=== PATIENT | female | born 1955 | race Caucasian/White ===

== ENCOUNTER 2019-04-15 14:42 | Inpatient (IN) | payer OTHER ==
[~2019-04-15] VITALS: Ht 152.4 cm; Wt 68.7 kg
[2019-04-15] MEDS ORDERED: ATORVASTATIN CA20 MG ORAL (15:08)
[2019-04-15] MEDS ORDERED: FLUOXETINE HCL10 MG ORAL (15:08)
[2019-04-15] MEDS ORDERED: LISINOPRIL5 MG ORAL (15:08)
[2019-04-15] MEDS ORDERED: FAMOTIDINE20 MG ORAL (15:08)
[2019-04-15] MEDS ORDERED: HYDROXYZINE HCL25 M1 PO (15:08)
[2019-04-15] MEDS ORDERED: GLIPIZIDE5 MG ORAL (15:08)
[2019-04-15] MEDS ORDERED: TRAZODONE HCL50 MG ORAL (15:08)
[2019-04-15] MEDS ORDERED: QUETIAPINE FUMA50 MG ORAL (15:08)
[2019-04-15] MEDS ORDERED: DEPAKOTE250 MG PO (15:08)
[2019-04-15] MEDS ORDERED: DEPAKOTE ER500 MG ORAL (15:08)
--- NOTE | 2019-04-15 15:15 | NUR ---
ED Nurse Note: Patient brought in by cyanide case hardener, Jeramy due to generalized weakness x 2 weeks, not able to 'walk around as usual, take care of herself' at [facility]. Patient awake, alert, oriented x2 (name, place) and able to follow some commands; Patient was able to walk with assistance and use restroom. Report no pain. No facial grimacing or guarding noted. Placed patient on cleaning attendant. No ectopy noted. Bed in lowest position. Patient has hospital socks on.
--- NOTE | 2019-04-15 15:17 | Emergency Room Report ---
History of Present Illness General Chief Complaint: Generalized Weakness Source: Patient, Medical Record Present Illness HPI Patient presents by boarding care member who reports the patient has been progressively getting more weak unable to ambulate having difficulty standing The facility is unable to care for the patient in their capacity patient also has had several falls in the recent past Denies any chest pain or shortness of breath denies any vomiting she has had decreased oral intake Denies any recent change in medications Denies any loss of control of bowel or urination denies any sensation changes in the genital area Allergies: Coded Allergies: No Known Allergies (Unverified , 04/15/19) Patient History Past Medical History: see triage record Pertinent Family History: none Last Menstrual Period: na Reviewed Nursing Documentation: PMH: Agreed; PSxH: Agreed Nursing Documentation-PMH Past Medical History: No History, Except For Hx Hypertension: Yes Hx Diabetes: Yes Hx Gastrointestinal Problems: Yes - GERD History Of Psychiatric Problem: Yes - depression Hx Neurological Problems: Yes - craniotomy Review of Systems All Other Systems: negative except mentioned in HPI Physical Exam Vital Signs Date Time Temp Pulse Resp B/P (MAP) Pulse Ox O2 Delivery O2 Flow Rate FiO2 04/15/19 14:47 98.1 80 20 100/71 (81) 97 Room Air Sp02 EP Interpretation: reviewed, normal General Appearance: no apparent distress Head: normocephalic, atraumatic Eyes: bilateral eye PERRL, bilateral eye EOMI ENT: normal voice, dry mucus membranes Neck: supple, thyroid normal Respiratory: lungs clear, no retraction, no accessory muscle use Cardiovascular #1: regular rate, rhythm Gastrointestinal: non tender, soft Musculoskeletal: other - Patient has equal flexion extension of both feet no obvious focal weakness trying to stand the patient is able to ambulate few steps however reports feeling, weak and needing to sit down Neurologic: alert, oriented x3 Psychiatric: normal inspection Skin: no rash, palpation normal Lymphatic: no adenopathy Medical Decision Making Diagnostic Impression: Primary Impression: Hyponatremia Additional Impression: Weakness ER Course Patient is a fairly complex patient with multiple differential to consideration including but not limited to cardiac cardiopulmonary and vascular emergencies Central process also considered CT does not show any obvious acute pathology patient's sodium level is low Further hydrated with sodium chloride And at this time requires further inpatient care Labs Test 04/15/19 15:15 White Blood Count 8.9 K/UL (4.8-10.8) Red Blood Count 4.42 M/UL (4.20-5.40) Hemoglobin 13.0 G/DL (12.0-16.0) Hematocrit 39.1 % (37.0-47.0) Mean Corpuscular Volume 88 FL (80-99) Mean Corpuscular Hemoglobin 29.5 PG (27.0-31.0) Mean Corpuscular Hemoglobin Concent 33.3 G/DL (32.0-36.0) Red Cell Distribution Width 14.9 % (11.6-14.8) Platelet Count 166 K/UL (150-450) Mean Platelet Volume 6.1 FL (6.5-10.1) Neutrophils (%) (Auto) 50.7 % (45.0-75.0) Lymphocytes (%) (Auto) 35.7 % (20.0-45.0) Monocytes (%) (Auto) 8.8 % (1.0-10.0) Eosinophils (%) (Auto) 3.5 % (0.0-3.0) Basophils (%) (Auto) 1.3 % (0.0-2.0) Urine Color Pale yellow Urine Appearance Clear Urine pH 7 (4.5-8.0) Urine Specific Palmer 1.010 (1.005-1.035) Urine Protein Negative (NEGATIVE) Urine Glucose (UA) Negative (NEGATIVE) Urine Ketones Negative (NEGATIVE) Urine Blood Negative (NEGATIVE) Urine Nitrite Negative (NEGATIVE) Urine Bilirubin Negative (NEGATIVE) Urine Urobilinogen Normal MG/DL (0.0-1.0) Urine Leukocyte Esterase Negative (NEGATIVE) Sodium Level 124 MMOL/L (136-145) Potassium Level 4.7 MMOL/L (3.5-5.1) Chloride Level 93 MMOL/L (98-107) Carbon Dioxide Level 25 MMOL/L (21-32) Anion Gap 6 mmol/L (5-15) Blood Urea Nitrogen 19 mg/dL (7-18) Creatinine 1.3 MG/DL (0.55-1.30) Estimat Glomerular Filtration Rate 41.4 mL/min (>60) Glucose Level 127 MG/DL (74-106) Calcium Level 9.0 MG/DL (8.5-10.1) Total Bilirubin 0.3 MG/DL (0.2-1.0) Aspartate Amino Transf (AST/SGOT) 17 U/L (15-37) Alanine Aminotransferase (ALT/SGPT) 11 U/L (12-78) Alkaline Phosphatase 55 U/L (46-116) Total Creatine Kinase 26 U/L (26-308) Creatine Kinase MB < 0.5 NG/ML (0.0-3.6) Creatine Kinase MB Relative Index 1.9 Troponin I 0.000 ng/mL (0.000-0.056) Pro-B-Type Natriuretic Peptide 511 pg/mL (0-125) Total Protein 6.4 G/DL (6.4-8.2) Albumin 2.7 G/DL (3.4-5.0) Globulin 3.7 g/dL Albumin/Globulin Ratio 0.7 (1.0-2.7) EKG Diagnostic Results Rate: normal Rhythm: NSR ST Segments: no acute changes Rhythm Strip Diag. Results EP Interpretation: yes Rate: 80 Rhythm: NSR, no PVC's, no ectopy Chest X-Ray Diagnostic Results Chest X-Ray Diagnostic Results : Chest X-Ray Ordered: Yes # of Views/Limited/Complete: 1 View Indication: Chest Pain EP Interpretation: Yes Interpretation: no consolidation, no effusion, no pneumothorax Impression: No acute disease Electronically Signed by: Ruth Francisco DO CT/MRI/US Diagnostic Results CT/MRI/US Diagnostic Results : Impression CT head no acute disease CT L-spine no acute disease Last Vital Signs Date Time Temp Pulse Resp B/P (MAP) Pulse Ox O2 Delivery O2 Flow Rate FiO2 04/15/19 14:47 98.1 80 20 100/71 (81) 97 Room Air Status: improved Disposition: ADMITTED INPATIENT Condition: Serious Ruth Francisco DO Apr 15, 2019 15:17
[2019-04-15 15:20] VITALS: BP 110/68
--- NOTE | 2019-04-15 15:31 | NUR ---
ED Nurse Note: Patient taken down for CT scan. salon/spa manager in waiting room.
[2019-04-15 15:43] LABS: APPEARANCE,URINE CLEAR; BILIRUBIN, URINE NEGATIVE (NEGATIVE); COLOR,URINE PALE YELLOW; GLUCOSE, URINE (UA) NEGATIVE (NEGATIVE); KETONES,URINE NEGATIVE (NEGATIVE); LEUKOCYTE ESTERASE ,URINE NEGATIVE (NEGATIVE); NITRITE,URINE NEGATIVE (NEGATIVE); PH,URINE 7 (4.5-8.0); PROTEIN,URINE NEGATIVE (NEGATIVE); UROBILINOGEN,URINE NORMAL MG/DL (0.0-1.0)
[2019-04-15 15:44] LABS: BASOPHILS % (AUTO) 1.3 % (0.0-2.0); EOSINOPHILS % (AUTO) 3.5 % (0.0-3.0); HEMATOCRIT 39.1 % (37.0-47.0); LYMPHOCYTES % (AUTO) 35.7 % (20.0-45.0); MEAN CORPUSCULAR VOLUME 88 FL (80-99); MONOCYTES % (AUTO) 8.8 % (1.0-10.0); NEUTROPHILS % (AUTO) 50.7 % (45.0-75.0); PLATELET COUNT 166 K/UL (150-450); RED BLOOD COUNT 4.42 M/UL (4.20-5.40); RED CELL DISTRIBUTION WIDTH 14.9 % (11.6-14.8); WHITE BLOOD COUNT 8.9 K/UL (4.8-10.8)
--- NOTE | 2019-04-15 15:49 | Diagnostic Imaging Report ---
Indication: Chest pain Comparison: None A single view chest radiograph was obtained. Findings: No definite infiltrate or pulmonary vascular congestion identified. The heart is normal in size. The aorta is mildly enlarged consistent with atherosclerotic vascular disease. The bones are osteopenic. Cervical hardware noted. Surgical clips in the upper abdomen noted. Impression: No acute disease
[2019-04-15 15:54] LABS: ANION GAP 6 mmol/L (5-15); BLOOD UREA NITROGEN 19 mg/dL (7-18); CARBON DIOXIDE 25 MMOL/L (21-32); CHLORIDE 93 MMOL/L (98-107); CREATININE 1.3 MG/DL (0.55-1.30); POTASSIUM 4.7 MMOL/L (3.5-5.1); SODIUM 124 MMOL/L (136-145)
--- NOTE | 2019-04-15 16:01 | Diagnostic Imaging Report ---
Indication: Head trauma. Headache. Progressive weakness Technique: Contiguous 5 mm thick transaxial imaging of the head obtained in a Siemens Sensation [address] scanner. Soft tissue and bone windows generated. Automatic Exposure Control was utilized. Total Dose length Product (DLP): 1386.[address] Dose Index Volume (CTDIvol): 70.38 mGy Comparison: none Findings: There is a 6 x 5 cm of resected calvarium over the right frontal region. There is mild generalized prominence of the ventricles, basal cisterns, and cerebral sulci consistent with atrophy. Mild, nonspecific, white matter hypoattenuation is noted throughout the brain consistent with chronic small vessel disease. There is no midline shift, edema, acute hemorrhage, mass effect, or abnormal extra-axial fluid collections. Bones are unremarkable. Impression: No acute intracranial bleed, mass effect or edema. 6 x 5 cm right frontal craniectomy. Mild atrophy of the brain. Nonspecific white matter hypoattenuation probably due to chronic small vessel disease. The CT scanner at [facility] is accredited by the [employer] and the scans are performed using dose optimization techniques as appropriate to a performed exam including Automatic Exposure control.
--- NOTE | 2019-04-15 16:04 | Diagnostic Imaging Report ---
Indication: Back pain and trauma Technique: Continuous helical transaxial imaging of the lumbar spine was obtained. No IV contrast was administered. Coronal 2-D reformats were also obtained. Study obtained in a Siemens sensation [address] Total Dose length Product (DLP): 611.[address] Dose Index Volume (CTDIvol): 20.06 mGy Comparison: None Findings: There is no evidence of an acute fracture or malalignment. Height and configuration of the vertebral bodies and intervertebral discs are largely within normal limits. There is minimal endplate osteophytes. The facets are mildly hypertrophic at L4-5 and L5-S1. There is no soft tissue swelling. Mild arterial calcium noted within the aorta and iliac arteries. Impression: No acute injury identified. Minimal degenerative changes as described above. Atherosclerotic vascular disease The CT scanner at [facility] is accredited by the [employer] and the scans are performed using dose optimization techniques as appropriate to a performed exam including Automatic Exposure control.
[2019-04-15 16:16] LABS: ALANINE AMINOTRANSFERASE 11 U/L (12-78); ALBUMIN 2.7 G/DL (3.4-5.0); ALBUMIN/GLOBULIN RATIO 0.7 (1.0-2.7); ALKALINE PHOSPHATASE 55 U/L (46-116); ASPARTATE AMINO TRANSFERASE 17 U/L (15-37); BILIRUBIN,TOTAL 0.3 MG/DL (0.2-1.0); CKMB < 0.5 NG/ML (0.0-3.6); CREATINE KINASE 26 U/L (26-308)
[2019-04-15 18:00] VITALS: BP 120/77
--- NOTE | 2019-04-15 18:31 | NUR ---
ED Nurse Note: Attempted to give report 4E. Will call us back later.
--- NOTE | 2019-04-15 18:41 | NUR ---
ED Nurse Note: Attempted to give report 4E.
--- NOTE | 2019-04-15 18:52 | NUR ---
CASE MANAGEMENT: REVIEW 64Y/F PRESENTED TO ED FROM [facility] CC: DIFFICULTY AMBULATING SI: GENERALIZED WEAKNESS T 98.1 HR 80 RR 20 BP 100/71 SAT 97% ROOM AIR NA 124 CHLOR 93 BUN GLUCOSE 127 IS: NS IVF BOLUS X1 CT HEAD PENDING PATIENT ADMITTED TO MED/SURG UNIT 04/15/2019 DCP: PATIENT IS FROM [facility]
--- NOTE | 2019-04-15 19:10 | NUR ---
ED Nurse Note: Report given to CHA Mayers. Patient is being transferred to in wheelchair with all her belongings. Patient consumed 100% dinner. Tolerated oral intake without problem.
[2019-04-15 20:00] VITALS: BP 154/85
--- NOTE | 2019-04-15 21:00 | NUR ---
NURSE NOTES: Admitted a 64 year old female, alert to name, place and purpose of visit, skin intact. IV access on the right antecubital area g.20. Oriented to room. Instructed the use of call light. Needs attended. Bed in lowest position, lock engaged and alarm on. Called Dr. Schofield for admission orders @2009 and left message. Received a call back from Dr. Schofield at [address] Silveira. Called Dr. Silveira and left message @2049. Waited for call back and attempted to contact Dr. Silveira again @9pm. Attempted to follow up orders @ 2249. Got a response and was waiting for admission orders. Got a response again from Dr. Silveira @ 2307 but no orders in EMR. Dr. Silveira made aware that no orders appeared on emr @ 00:25. Called Dr. Silveira and left message again and still waiting for call back until this time. Charge nurse made aware.
[2019-04-16] VITALS: BP 141/82
[2019-04-16 04:00] VITALS: BP 146/79
--- NOTE | 2019-04-16 06:20 | NUR ---
NURSE NOTES: Called Dr. Silveira and left message.
[2019-04-16] MEDS ORDERED: HydrALAZINE 25mg tab ORAL PRN (07:15)
--- NOTE | 2019-04-16 07:40 | NUR ---
NURSE NOTES: Spoke with Dr. Schofield. Obtained admission orders and carried out.
--- NOTE | 2019-04-16 07:45 | NUR ---
HAND-OFF: Report given to CHA Marino.
--- NOTE | 2019-04-16 07:49 | NUR ---
NURSE NOTES: Patient awake, alert x3; on room air, no sing of distress and shortness of breath; no sing of distress and chest pain; IV Right AC 20G flushes well; side rails up x3, breaks engaged, bed at lowest position, bed alarm on; call light within reach; will keep monitoring.
[2019-04-16 08:00] VITALS: BP 146/80
[2019-04-16 08:09] LABS: BASOPHILS % (AUTO) 1.3 % (0.0-2.0); EOSINOPHILS % (AUTO) 4.4 % (0.0-3.0); HEMOGLOBIN 11.7 G/DL (12.0-16.0); LYMPHOCYTES % (AUTO) 39.6 % (20.0-45.0); MEAN CORPUSCULAR VOLUME 89 FL (80-99); MONOCYTES % (AUTO) 8.5 % (1.0-10.0); NEUTROPHILS % (AUTO) 46.1 % (45.0-75.0); PLATELET COUNT 145 K/UL (150-450); RED BLOOD COUNT 3.93 M/UL (4.20-5.40); WHITE BLOOD COUNT 7.7 K/UL (4.8-10.8)
[2019-04-16 08:24] LABS: ALANINE AMINOTRANSFERASE 11 U/L (12-78); ALBUMIN 2.4 G/DL (3.4-5.0); ALBUMIN/GLOBULIN RATIO 0.6 (1.0-2.7); ALKALINE PHOSPHATASE 52 U/L (46-116); ANION GAP 3 mmol/L (5-15); ASPARTATE AMINO TRANSFERASE 16 U/L (15-37); BILIRUBIN,TOTAL 0.3 MG/DL (0.2-1.0); BLOOD UREA NITROGEN 19 mg/dL (7-18); CALCIUM 9.2 MG/DL (8.5-10.1); CARBON DIOXIDE 29 MMOL/L (21-32); CHLORIDE 96 MMOL/L (98-107); CREATININE 1.4 MG/DL (0.55-1.30); PHOSPHORUS 3.5 MG/DL (2.5-4.9); POTASSIUM 4.8 MMOL/L (3.5-5.1); SODIUM 128 MMOL/L (136-145)
[2019-04-16] MEDS: Depakote ER 500mg tab ORAL SCH (08:33)
[2019-04-16] MEDS: Lisinopril 10mg tab ORAL SCH (08:34)
[2019-04-16] MEDS: FLUoxetine 10mg cap ORAL SCH (08:34)
[2019-04-16] MEDS: Heparin 5000 units/ml inj SUBQ SCH ×2 (08:38→21:00)
--- NOTE | 2019-04-16 08:50 | NUR ---
NURSE NOTES: Urine collected and sent to lab. Waiting for results.
[2019-04-16] MEDS: NovoLOG Insulin Flexpen SUBQ SCH ×3 (11:47→21:00)
[2019-04-16 12:00] VITALS: BP 172/98
[2019-04-16 16:00] VITALS: BP 135/78
--- NOTE | 2019-04-16 16:13 | NUR ---
[employer] SpecialistLine Lead 64 Y/O Female brought in by CM from [facility] CC: Increased difficulty ambulating at board and care. SI: Generalized Weakness VS: BP: 100/71 HR: 80 RR 20 02 Sat 97% (RA) T: 98.1 NT: BUN 19 NT-proBNP 511 Albumin 2.7 Sodium 124 Chloride 93 CXR: Negative Head CT: Negative Spine CT: Negative IS: NS 500 Admitted to Med Surg Med Surg status DCP: Pending Hospital Stay
--- NOTE | 2019-04-16 16:32 | NUR ---
MRI brain W/O completed.
--- NOTE | 2019-04-16 16:56 | Diagnostic Imaging Report ---
Indication: Altered mental status. Weakness Technique: MRI the brain performed utilizing T1 sagittal, T2 axial, T1 FLAIR axial, T2 FLAIR axial, T2*GRE and diffusion axial images without gadolinium. Comparison: Noncontrast CT of the head 04/15/2019 Findings: No diffusion abnormalities are seen on diffusion weighted imaging. No evidence of acute intracranial hemorrhage. The sulci, ventricles and cisterns are prominent consistent with atrophy. Very mild periventricular and supratentorial white matter T2 hyperintensity are seen without mass effect. There is no shift of midline structures. No significant extra-axial collections of fluid or blood are demonstrated. Visualized mastoid air cells and paranasal sinuses are unremarkable. Prior right frontal craniectomy. IMPRESSION: No evidence of acute infarct, intracranial hemorrhage, mass effect or cortical edema. Atrophy. Nonspecific periventricular and subcortical T2 signal hyperintensity without mass effect most commonly related to chronic small vessel disease. Prior right frontal craniectomy. Correlation with surgical history recommended.
[2019-04-16] MEDS: GlipiZIDE 5mg tab ORAL SCH (17:13)
--- NOTE | 2019-04-16 17:18 | History & Physical ---
History and Physical History & Physicial Job @ [id number] Nelson Schofield MD Apr 16, 2019 17:18
--- NOTE | 2019-04-16 18:32 | Consultation ---
Consult Note Consult Note asked to eval at the request of Dr Schofield for HypoNatremia Patient admitted for weakness Patient presents by boarding care member who reports the patient has been progressively getting more weak unable to ambulate having difficulty standing The facility is unable to care for the patient in their capacity patient also has had several falls in the recent past Denies any chest pain or shortness of breath denies any vomiting she has had decreased oral intake Denies any recent change in medications Denies any loss of control of bowel or urination denies any sensation changes in the genital area No Known Allergies (Unverified , 04/15/19) Past Medical History: No History, Except For Hx Hypertension: Yes Hx Diabetes: Yes Hx Gastrointestinal Problems: Yes - GERD History Of Psychiatric Problem: Yes - depression Hx Neurological Problems: Yes - craniotomy interviewed examined data reviewed Assessment/Plan HypoNatremia. Etiology: Depletional / SIADH DM , OOC , elevated A1c Mild Anemia HypoAlbuminemia UOs SOs TSh uric Acid 3% saline trial Urine spot Na per orders Alfonso Baez MD Apr 16, 2019 18:32
--- NOTE | 2019-04-16 19:30 | NUR ---
NURSE NOTES: Patient in bed, no complaints of pain, not in respiratory distress. Instructed the use of call light especially when using bedside commode. Call light and needs in reach. Bed in lowest, lock engaged and alarm on. Will continue to monitor.
--- NOTE | 2019-04-16 19:59 | NUR ---
HAND-OFF: Report given to CHA Brown.
[2019-04-16 20:00] VITALS: BP 131/73
[2019-04-16] MEDS ORDERED: NaCl 3% 500ml 250 ML IV ONE (20:00)
--- NOTE | 2019-04-16 23:00 | NUR ---
NURSE NOTES: Spoke with the pharmacy regarding Na CL 3% administration and per pharmacist recommendation was to administer the IVF (NS) separately from it with other line. Obtained a new IV access on the left hand. IV access on the right antecubital has redness on the area. Per patient she wanted to keep the old IV line, too. Will continue to monitor.
[2019-04-17] VITALS: BP 131/83
--- NOTE | 2019-04-17 02:15 | History and Physical Report ---
DATE OF ADMISSION: 04/15/2019 CHIEF COMPLAINT: Dizziness, balance problem. HISTORY OF PRESENT ILLNESS: This is a 64-year-old very delightful female with past medical history significant for diabetes type 2, hypertension, obesity, history of craniotomy, and depression, who has presented to the hospital from board and care after she was noted to have difficulty walking. She had several falls in the past. She has a balance problem. She denies any nausea or vomiting. Denies any fever or chills. Denies any seizure activity. Denies any bowel or urine incontinence. However, she is complaining about constipation. Shortly after initial evaluation in the emergency room, the patient was noted to be hyponatremic with sodium level of 124 and subsequently, the patient was admitted to the hospital with balance problem and recurrent fall, possibly due to hyponatremia. PAST MEDICAL HISTORY PAST SURGICAL HISTORY: As above. History of craniotomy, diabetes type 2, hypertension, morbid obesity, GERD, and depression. MEDICATIONS AT HOME: Please refer to medication reconciliation. ALLERGIES: No known drug allergies. SOCIAL HISTORY: The patient denies any smoking, alcohol, or drugs. FAMILY HISTORY: Noncontributory. REVIEW OF SYSTEMS: Mostly as above. PHYSICAL EXAMINATION: VITAL SIGNS: On admission, temperature 98.1, pulse of 80, respiratory rate 20, and blood pressure 100/71. GENERAL: The patient is awake and responsive, in no acute distress. HEAD AND NECK: Pupils are reactive to light. Extraocular movements intact. NECK: Supple. No JVD. LUNGS: Good air entry. No wheezing or rales. HEART: Reveals S1, S2. Regular rhythm. No gallop. ABDOMEN: Soft, nondistended, and nontender. Morbidly obese. EXTREMITIES: No cyanosis, clubbing, or edema. NEUROLOGIC: Cranial nerves II through XII grossly intact. Motor is 5+ in all extremities. Gait is ataxic. RECTAL/GENITOURINARY: Refused and deferred. PSYCHIATRIC: Mood and affect is intact. LABORATORY DATA: On admission from the ER, WBC of 8.0, hemoglobin of 13, hematocrit 39, and platelets is 166,000. Sodium 124, potassium 4.7, chloride 98, bicarbonate 25, BUN 19, creatinine 1.3, and glucose is 124. Troponin 0.00. ProBNP of 511. Urinalysis grossly intact. Urine osmolality is 321. The patient had a CT of the spine. No acute injury. Minimal degenerative changes. MRI of the brain was noted and no evidence of acute infarction, intracranial hemorrhage, mass effect, or cortical edema, atrophy, nonspecific periventricular and subcortical T2 signal without any mass effect, and prior history of right frontal craniotomy. ASSESSMENT: 1. Dizziness and balance problems, possibly due to the severe hyponatremia. 2. Dehydration. 3. Hyponatremia, possible due to dehydration in conjunction with SIADH. 4. Hypertension. 5. Diabetes type 2. 6. GERD. 7. Depression. 8. History of right frontal craniotomy. PLAN: 1. Admit the patient to medical floor. 2. Start the patient on NS. 3. Monitor laboratory closely. 4. Follow up with the Nephrology consultation as well as Neurology if need to. 5. Code status Full Code. 6. DVT prophylaxis with heparin subcutaneous. Nelson Schofield M.D. DR: ADDI JOB#: [id number] CC:
[2019-04-17 04:00] VITALS: BP 139/72
[2019-04-17] MEDS: NovoLOG Insulin Flexpen SUBQ SCH ×4 (06:21→20:07)
[2019-04-17] MEDS: GlipiZIDE 5mg tab ORAL SCH ×2 (06:21→17:12)
--- NOTE | 2019-04-17 07:26 | NUR ---
HAND-OFF: Report given to CHA Marino.
--- NOTE | 2019-04-17 07:58 | NUR ---
NURSE NOTES: Patient alert x4, on room air, no sign of distress and shortness of breath; no sing of chest pain; IV Left-Hand 24G flushes well; side rails up x3, breaks engaged, bed at lowest position, bed alarm on; call light within reach; bed side common within reach; will keep monitoring blood sugar; care out the plan of care.
[2019-04-17 08:00] VITALS: BP 143/79
[2019-04-17 08:08] LABS: ALANINE AMINOTRANSFERASE 7 U/L (12-78); ALBUMIN 2.1 G/DL (3.4-5.0); ALBUMIN/GLOBULIN RATIO 0.7 (1.0-2.7); ALKALINE PHOSPHATASE 45 U/L (46-116); ANION GAP 6 mmol/L (5-15); ASPARTATE AMINO TRANSFERASE 14 U/L (15-37); BILIRUBIN,TOTAL 0.2 MG/DL (0.2-1.0); BLOOD UREA NITROGEN 17 mg/dL (7-18); CALCIUM 8.1 MG/DL (8.5-10.1); CARBON DIOXIDE 24 MMOL/L (21-32); CHLORIDE 103 MMOL/L (98-107); CREATININE 1.1 MG/DL (0.55-1.30); PHOSPHORUS 3.4 MG/DL (2.5-4.9); POTASSIUM 4.1 MMOL/L (3.5-5.1); SODIUM 133 MMOL/L (136-145)
[2019-04-17 08:16] LABS: % IRON SATURATION 16 % (15-50); IRON 35 ug/dL (50-175); TOTAL IRON BINDING CAPACITY 220 ug/dL (250-450)
[2019-04-17] MEDS: Heparin 5000 units/ml inj SUBQ SCH ×2 (09:00→20:07)
[2019-04-17 09:13] LABS: CREATINE KINASE 33 U/L (26-308); GAMMA GLUTAMYL TRANSPEPTIDASE 16 U/L (5-85)
[2019-04-17] MEDS: FLUoxetine 10mg cap ORAL SCH (09:14)
[2019-04-17] MEDS: Depakote ER 500mg tab ORAL SCH (09:14)
[2019-04-17] MEDS: Lisinopril 10mg tab ORAL SCH (09:15)
[2019-04-17 09:20] LABS: FERRITIN 65 NG/ML (8-388)
--- NOTE | 2019-04-17 09:50 | Consultation ---
History of Present Illness General Date patient seen: Apr 16, 2019 Chief Complaint: Generalized Weakness Present Illness Allergies: Coded Allergies: No Known Allergies (Unverified , 04/15/19) Medication History Scheduled Atorvastatin Calcium* (Atorvastatin Calcium*), 10 MG ORAL BEDTIME, (Reported) Divalproex Sodium* (Depakote Er*), 500 MG ORAL DAILY, (Reported) Divalproex Sodium* (Depakote*), 750 MG PO QHS, (Reported) Famotidine (Famotidine), 20 MG ORAL QHS, (Reported) Fluoxetine Hcl* (Fluoxetine Hcl*), 10 MG ORAL DAILY, (Reported) Glipizide* (Glipizide*), 10 MG ORAL BIDAC, (Reported) Hydroxyzine Hcl (Hydroxyzine Hcl), 25 MG PO BID, (Reported) Lisinopril (Lisinopril*), 10 MG ORAL DAILY, (Reported) Quetiapine Fumarate* (Quetiapine Fumarate*), 100 MG ORAL DAILY, (Reported) Trazodone Hcl* (Desyrel*), 50 MG ORAL BEDTIME, (Reported) Patient History Healthcare decision maker SELF Resuscitation status Advanced Directive on File Physical Exam Last 24 Hour Vital Signs Date Time Temp Pulse Resp B/P (MAP) Pulse Ox O2 Delivery O2 Flow Rate FiO2 04/17/19 09:15 143/79 04/17/19 08:00 97.7 71 19 143/79 (100) 97 04/17/19 04:00 98.8 97 19 139/72 (94) 98 04/17/19 00:00 98.8 89 19 131/83 (99) 98 04/16/19 21:00 Room Air 04/16/19 20:00 98.5 85 19 131/73 (92) 95 04/16/19 16:00 98.6 83 18 135/78 (97) 96 04/16/19 12:00 98.0 75 17 172/98 (122) 97 04/16/19 11:46 172/98 Intake and Output 04/16/19 04/17/19 19:00 07:00 Intake Total 1230 ml 620 ml Balance 1230 ml 620 ml Intake Oral 480 ml 120 ml IV Total 750 ml 500 ml # Voids 3 3 Laboratory Tests Test 04/17/19 05:55 Prothrombin Time 10.6 SEC (9.30-11.50) Prothromb Time International Ratio 1.0 (0.9-1.1) Activated Partial Thromboplast Time 30 SEC (23-33) Sodium Level 133 MMOL/L (136-145) L Potassium Level 4.1 MMOL/L (3.5-5.1) Chloride Level 103 MMOL/L (98-107) Carbon Dioxide Level 24 MMOL/L (21-32) Anion Gap 6 mmol/L (5-15) Blood Urea Nitrogen 17 mg/dL (7-18) Creatinine 1.1 MG/DL (0.55-1.30) Estimat Glomerular Filtration Rate 50.2 mL/min (>60) Glucose Level 126 MG/DL (74-106) H Osmolality 278 mOsm/kg (297-317) L Uric Acid 3.7 MG/DL (2.6-7.2) Calcium Level 8.1 MG/DL (8.5-10.1) L Phosphorus Level 3.4 MG/DL (2.5-4.9) Magnesium Level 1.6 MG/DL (1.8-2.4) L Iron Level 35 ug/dL (50-175) L Total Iron Binding Capacity 220 ug/dL (250-450) L Percent Iron Saturation 16 % (15-50) Unsaturated Iron Binding 185 ug/dL (112-346) Ferritin 65 NG/ML (8-388) Total Bilirubin 0.2 MG/DL (0.2-1.0) Gamma Glutamyl Transpeptidase 16 U/L (5-85) Aspartate Amino Transf (AST/SGOT) 14 U/L (15-37) L Alanine Aminotransferase (ALT/SGPT) 7 U/L (12-78) L Alkaline Phosphatase 45 U/L (46-116) L Total Creatine Kinase 33 U/L (26-308) Troponin I 0.007 ng/mL (0.000-0.056) C-Reactive Protein, Quantitative < 0.4 mg/dL (0.00-0.90) Total Protein 5.2 G/DL (6.4-8.2) L Albumin 2.1 G/DL (3.4-5.0) L Globulin 3.1 g/dL Albumin/Globulin Ratio 0.7 (1.0-2.7) L Vitamin B12 Level 1251 PG/ML (193-986) H Folate 11.0 NG/ML (8.6-58.9) Thyroid Stimulating Hormone (TSH) 8.538 uiU/mL (0.358-3.740) Valproic Acid (Depakene) Level 76 MCG/ML (50-100) Height (Feet): 5 Height (Inches): 0.00 Weight (Pounds): 152 Medications Current Medications Medications (Trade) Dose Ordered Sig/Ingrid Route PRN Reason Start Time Stop Time Status Last Admin Dose Admin Acetaminophen (Tylenol) 650 mg Q6H PRN ORAL Mild Pain/Temp > 100.5 04/16/19 07:15 05/16/19 07:14 Atorvastatin Calcium (Lipitor) 10 mg BEDTIME ORAL 04/16/19 21:00 05/16/19 20:59 04/16/19 21:03 Dextrose (Dextrose 50%) 25 ml Q30M PRN IV Hypoglycemia 04/16/19 07:15 05/16/19 07:14 Dextrose (Dextrose 50%) 50 ml Q30M PRN IV Hypoglycemia 04/16/19 07:15 05/16/19 07:14 Divalproex Sodium (Depakote ER) 500 mg DAILY ORAL 04/16/19 09:00 05/16/19 08:59 04/17/19 09:14 Divalproex Sodium (Depakote) 750 mg QHS ORAL 04/16/19 21:00 05/16/19 20:59 04/16/19 21:03 Famotidine (Pepcid) 20 mg QHS ORAL 04/16/19 21:00 05/16/19 20:59 04/16/19 21:03 Fluoxetine HCl (PROzac) 10 mg DAILY ORAL 04/16/19 09:00 05/16/19 08:59 04/17/19 09:14 Glipizide (Glucotrol) 10 mg BIAC ORAL 04/16/19 16:30 05/16/19 16:29 04/17/19 06:21 Heparin Sodium (Porcine) (Heparin 5000 units/ml) 5,000 units EVERY 12 HOURS SUBQ 04/16/19 09:00 05/16/19 08:59 Hydralazine HCl (Apresoline) 25 mg Q6H PRN ORAL SBP > 150mmHg 04/16/19 07:15 05/16/19 07:14 04/16/19 11:46 Insulin Aspart (NovoLOG) BEFORE MEALS AND HS SUBQ 04/16/19 11:30 05/16/19 11:29 04/16/19 17:14 Lisinopril (Zestril) 10 mg DAILY ORAL 04/16/19 09:00 05/16/19 08:59 04/17/19 09:15 Ondansetron HCl (Zofran) 4 mg Q4H PRN IVP Nausea & Vomiting 04/16/19 07:15 05/16/19 07:14 Quetiapine Fumarate (SEROquel) 100 mg QHS ORAL 04/16/19 21:00 05/16/19 20:59 04/16/19 21:03 Assessment/Plan Problem List: (1) Acute encephalopathy ICD Codes: G93.40 - Encephalopathy, unspecified SNOMED: 12805515, 567967841 (2) Hyponatremia ICD Codes: E87.1 - Hypo-osmolality and hyponatremia SNOMED: 61447039 (3) Weakness ICD Codes: R53.1 - Weakness SNOMED: 77305337 (4) Psychosis ICD Codes: F29 - Unspecified psychosis not due to a substance or known physiological condition SNOMED: 79200980 (5) Episode of generalized weakness ICD Codes: R53.1 - Weakness SNOMED: 23777289 (6) Diabetes mellitus ICD Codes: E11.9 - Type 2 diabetes mellitus without complications SNOMED: 21612290 Theresa Silveira MD Apr 17, 2019 09:50
--- NOTE | 2019-04-17 09:52 | Pulmonology Progress Note ---
Assessment/Plan Problems: (1) Acute encephalopathy (2) Hyponatremia (3) Weakness (4) Psychosis (5) Episode of generalized weakness (6) Diabetes mellitus Assessment/Plan feeling better still very weak sliding scale pt/ot neuro evaluation Subjective ROS Limited/Unobtainable: No Interval Events: doing better Constitutional: Reports: no symptoms HEENT: Repors: no symptoms Respiratory: Reports: no symptoms Allergies: Coded Allergies: No Known Allergies (Unverified , 04/15/19) Objective Last 24 Hour Vital Signs Date Time Temp Pulse Resp B/P (MAP) Pulse Ox O2 Delivery O2 Flow Rate FiO2 04/17/19 09:15 143/79 04/17/19 08:00 97.7 71 19 143/79 (100) 97 04/17/19 04:00 98.8 97 19 139/72 (94) 98 04/17/19 00:00 98.8 89 19 131/83 (99) 98 04/16/19 21:00 Room Air 04/16/19 20:00 98.5 85 19 131/73 (92) 95 04/16/19 16:00 98.6 83 18 135/78 (97) 96 04/16/19 12:00 98.0 75 17 172/98 (122) 97 04/16/19 11:46 172/98 Intake and Output 04/16/19 04/17/19 19:00 07:00 Intake Total 1230 ml 620 ml Balance 1230 ml 620 ml Intake Oral 480 ml 120 ml IV Total 750 ml 500 ml # Voids 3 3 General Appearance: WD/WN, no acute distress HEENT: normocephalic Respiratory/Chest: chest wall non-tender, lungs clear Breasts: no masses Cardiovascular: normal peripheral pulses Abdomen: normal bowel sounds Genitourinary: normal external genitalia Neurologic/Psychiatric: steersman II-XII grossly normal Microbiology Date/Time Source Procedure Growth Status 04/15/19 19:55 Rectum Received Laboratory Tests 04/17/19 05:55: Prothrombin Time 10.6, Prothromb Time International Ratio 1.0, Activated Partial Thromboplast Time 30, Sodium Level 133L, Potassium Level 4.1, Chloride Level 103, Carbon Dioxide Level 24, Anion Gap 6, Blood Urea Nitrogen 17, Creatinine 1.1, Estimat Glomerular Filtration Rate 50.2, Glucose Level 126H, Osmolality 278L, Uric Acid 3.7, Calcium Level 8.1L, Phosphorus Level 3.4, Magnesium Level 1.6L, Iron Level 35L, Total Iron Binding Capacity 220L, Percent Iron Saturation 16, Unsaturated Iron Binding 185, Ferritin 65, Total Bilirubin 0.2, Gamma Glutamyl Transpeptidase 16, Aspartate Amino Transf (AST/SGOT) 14L, Alanine Aminotransferase (ALT/SGPT) 7L, Alkaline Phosphatase 45L, Total Creatine Kinase 33, Troponin I 0.007, C-Reactive Protein, Quantitative < 0.4, Total Protein 5.2L, Albumin 2.1L, Globulin 3.1, Albumin/Globulin Ratio 0.7L, Vitamin B12 Level 1251H, Folate 11.0, Thyroid Stimulating Hormone (TSH) 8.538H, Valproic Acid (Depakene) Level 76 Current Medications Medications (Trade) Dose Ordered Sig/Ingrid Route PRN Reason Start Time Stop Time Status Last Admin Dose Admin Acetaminophen (Tylenol) 650 mg Q6H PRN ORAL Mild Pain/Temp > 100.5 04/16/19 07:15 05/16/19 07:14 Atorvastatin Calcium (Lipitor) 10 mg BEDTIME ORAL 04/16/19 21:00 05/16/19 20:59 04/16/19 21:03 Dextrose (Dextrose 50%) 25 ml Q30M PRN IV Hypoglycemia 04/16/19 07:15 05/16/19 07:14 Dextrose (Dextrose 50%) 50 ml Q30M PRN IV Hypoglycemia 04/16/19 07:15 05/16/19 07:14 Divalproex Sodium (Depakote ER) 500 mg DAILY ORAL 04/16/19 09:00 05/16/19 08:59 04/17/19 09:14 Divalproex Sodium (Depakote) 750 mg QHS ORAL 04/16/19 21:00 05/16/19 20:59 04/16/19 21:03 Famotidine (Pepcid) 20 mg QHS ORAL 04/16/19 21:00 05/16/19 20:59 04/16/19 21:03 Fluoxetine HCl (PROzac) 10 mg DAILY ORAL 04/16/19 09:00 05/16/19 08:59 04/17/19 09:14 Glipizide (Glucotrol) 10 mg BIAC ORAL 04/16/19 16:30 05/16/19 16:29 04/17/19 06:21 Heparin Sodium (Porcine) (Heparin 5000 units/ml) 5,000 units EVERY 12 HOURS SUBQ 04/16/19 09:00 05/16/19 08:59 Hydralazine HCl (Apresoline) 25 mg Q6H PRN ORAL SBP > 150mmHg 04/16/19 07:15 05/16/19 07:14 04/16/19 11:46 Insulin Aspart (NovoLOG) BEFORE MEALS AND HS SUBQ 04/16/19 11:30 05/16/19 11:29 04/16/19 17:14 Lisinopril (Zestril) 10 mg DAILY ORAL 04/16/19 09:00 05/16/19 08:59 04/17/19 09:15 Ondansetron HCl (Zofran) 4 mg Q4H PRN IVP Nausea & Vomiting 04/16/19 07:15 05/16/19 07:14 Quetiapine Fumarate (SEROquel) 100 mg QHS ORAL 04/16/19 21:00 05/16/19 20:59 04/16/19 21:03 Theresa Sliveira MD Apr 17, 2019 09:52
[2019-04-17] MEDS ORDERED: HydrALAZINE 25mg tab ORAL PRN (10:07)
--- NOTE | 2019-04-17 10:09 | Nephrology Progress Note ---
Assessment/Plan Problem List: (1) Hyponatremia Assessment: mixed picture (2) Diabetes mellitus (3) Psychosis (4) Anemia Assessment HypoNatremia. Etiology: Depletional / SIADH DM , OOC , elevated A1c Mild Anemia HypoAlbuminemia Plan Lasix 10 IV Q8h Start Synthroid UOs SOs TSH elevated Uric Acid Low 3% saline trial Urine spot Na high per orders Subjective ROS Limited/Unobtainable: No Constitutional: Reports: malaise, weakness Objective Objective Last 24 Hour Vital Signs Date Time Temp Pulse Resp B/P (MAP) Pulse Ox O2 Delivery O2 Flow Rate FiO2 04/17/19 09:15 143/79 04/17/19 09:00 Room Air 04/17/19 08:00 97.7 71 19 143/79 (100) 97 04/17/19 04:00 98.8 97 19 139/72 (94) 98 04/17/19 00:00 98.8 89 19 131/83 (99) 98 04/16/19 21:00 Room Air 04/16/19 20:00 98.5 85 19 131/73 (92) 95 04/16/19 16:00 98.6 83 18 135/78 (97) 96 04/16/19 12:00 98.0 75 17 172/98 (122) 97 04/16/19 11:46 172/98 Intake and Output 04/16/19 04/17/19 19:00 07:00 Intake Total 1230 ml 620 ml Balance 1230 ml 620 ml Intake Oral 480 ml 120 ml IV Total 750 ml 500 ml # Voids 3 3 Laboratory Tests 04/17/19 05:55: Prothrombin Time 10.6, Prothromb Time International Ratio 1.0, Activated Partial Thromboplast Time 30, Sodium Level 133L, Potassium Level 4.1, Chloride Level 103, Carbon Dioxide Level 24, Anion Gap 6, Blood Urea Nitrogen 17, Creatinine 1.1, Estimat Glomerular Filtration Rate 50.2, Glucose Level 126H, Osmolality 278L, Uric Acid 3.7, Calcium Level 8.1L, Phosphorus Level 3.4, Magnesium Level 1.6L, Iron Level 35L, Total Iron Binding Capacity 220L, Percent Iron Saturation 16, Unsaturated Iron Binding 185, Ferritin 65, Total Bilirubin 0.2, Gamma Glutamyl Transpeptidase 16, Aspartate Amino Transf (AST/SGOT) 14L, Alanine Aminotransferase (ALT/SGPT) 7L, Alkaline Phosphatase 45L, Total Creatine Kinase 33, Troponin I 0.007, C-Reactive Protein, Quantitative < 0.4, Total Protein 5.2L, Albumin 2.1L, Globulin 3.1, Albumin/Globulin Ratio 0.7L, Vitamin B12 Level 1251H, Folate 11.0, Thyroid Stimulating Hormone (TSH) 8.538H, Valproic Acid (Depakene) Level 76 Height (Feet): 5 Height (Inches): 0.00 Weight (Pounds): 152 General Appearance: no apparent distress Cardiovascular: normal rate Respiratory/Chest: lungs clear Abdomen: soft Objective no change Alfonso Baez MD Apr 17, 2019 10:09
[2019-04-17] MEDS ORDERED: NaCl 3% 500ml 250 ML IV ONE (11:00)
[2019-04-17 12:00] VITALS: BP 141/87
[2019-04-17] MEDS ORDERED: Tubing IV Secondary IV ONE (14:59)
[2019-04-17] MEDS ORDERED: NS 275ml ONE (14:59)
[2019-04-17 16:00] VITALS: BP 144/88
--- NOTE | 2019-04-17 17:42 | Internal Med Progress Note ---
Subjective Date of Service: Apr 17, 2019 Physician Name Bautista Miranda Attending Physician Nelson Schofield MD Current Medications Medications (Trade) Dose Ordered Sig/Ingrid Route PRN Reason Start Time Stop Time Status Last Admin Dose Admin Acetaminophen (Tylenol) 650 mg Q6H PRN ORAL Mild Pain/Temp > 100.5 04/16/19 07:15 05/16/19 07:14 Atorvastatin Calcium (Lipitor) 10 mg BEDTIME ORAL 04/16/19 21:00 05/16/19 20:59 04/16/19 21:03 Dextrose (Dextrose 50%) 25 ml Q30M PRN IV Hypoglycemia 04/16/19 07:15 05/16/19 07:14 Dextrose (Dextrose 50%) 50 ml Q30M PRN IV Hypoglycemia 04/16/19 07:15 05/16/19 07:14 Divalproex Sodium (Depakote ER) 500 mg DAILY ORAL 04/16/19 09:00 05/16/19 08:59 04/17/19 09:14 Divalproex Sodium (Depakote) 750 mg QHS ORAL 04/16/19 21:00 05/16/19 20:59 04/16/19 21:03 Famotidine (Pepcid) 20 mg QHS ORAL 04/16/19 21:00 05/16/19 20:59 04/16/19 21:03 Fluoxetine HCl (PROzac) 10 mg DAILY ORAL 04/16/19 09:00 05/16/19 08:59 04/17/19 09:14 Furosemide (Lasix) 10 mg EVERY 8 HOURS IV 04/17/19 14:00 04/18/19 06:01 04/17/19 14:42 Glipizide (Glucotrol) 10 mg BIAC ORAL 04/16/19 16:30 05/16/19 16:29 04/17/19 17:12 Heparin Sodium (Porcine) (Heparin 5000 units/ml) 5,000 units EVERY 12 HOURS SUBQ 04/16/19 09:00 05/16/19 08:59 Hydralazine HCl (Apresoline) 25 mg Q4H PRN ORAL SBP > 160mmHg 04/17/19 10:07 05/17/19 10:06 Insulin Aspart (NovoLOG) BEFORE MEALS AND HS SUBQ 04/16/19 11:30 05/16/19 11:29 04/17/19 17:13 Levothyroxine Sodium (Synthroid) 50 mcg DAILY@0630 ORAL 04/18/19 06:30 05/18/19 06:29 Lisinopril (Zestril) 10 mg DAILY ORAL 04/16/19 09:00 05/16/19 08:59 04/17/19 09:15 Ondansetron HCl (Zofran) 4 mg Q4H PRN IVP Nausea & Vomiting 04/16/19 07:15 05/16/19 07:14 Quetiapine Fumarate (SEROquel) 100 mg QHS ORAL 04/16/19 21:00 05/16/19 20:59 04/16/19 21:03 Sodium Chloride 250 ml @ 30 mls/hr ONCE ONCE IV 04/17/19 11:00 04/17/19 19:19 04/17/19 14:42 Allergies: Coded Allergies: No Known Allergies (Unverified , 04/15/19) ROS Limited/Unobtainable: Yes Subjective 64 YO F admitted with vertigo and ataxia. Now hyponatremia. Cover for Int Med -Dr Schofield Objective Last Vital Signs Date Time Temp Pulse Resp B/P (MAP) Pulse Ox O2 Delivery O2 Flow Rate FiO2 04/17/19 16:00 97.8 77 16 144/88 (106) 98 04/17/19 09:00 Room Air Laboratory Tests Test 04/17/19 05:55 Prothrombin Time 10.6 SEC (9.30-11.50) Prothromb Time International Ratio 1.0 (0.9-1.1) Activated Partial Thromboplast Time 30 SEC (23-33) Sodium Level 133 MMOL/L (136-145) L Potassium Level 4.1 MMOL/L (3.5-5.1) Chloride Level 103 MMOL/L (98-107) Carbon Dioxide Level 24 MMOL/L (21-32) Anion Gap 6 mmol/L (5-15) Blood Urea Nitrogen 17 mg/dL (7-18) Creatinine 1.1 MG/DL (0.55-1.30) Estimat Glomerular Filtration Rate 50.2 mL/min (>60) Glucose Level 126 MG/DL (74-106) H Osmolality 278 mOsm/kg (297-317) L Uric Acid 3.7 MG/DL (2.6-7.2) Calcium Level 8.1 MG/DL (8.5-10.1) L Phosphorus Level 3.4 MG/DL (2.5-4.9) Magnesium Level 1.6 MG/DL (1.8-2.4) L Iron Level 35 ug/dL (50-175) L Total Iron Binding Capacity 220 ug/dL (250-450) L Percent Iron Saturation 16 % (15-50) Unsaturated Iron Binding 185 ug/dL (112-346) Ferritin 65 NG/ML (8-388) Total Bilirubin 0.2 MG/DL (0.2-1.0) Gamma Glutamyl Transpeptidase 16 U/L (5-85) Aspartate Amino Transf (AST/SGOT) 14 U/L (15-37) L Alanine Aminotransferase (ALT/SGPT) 7 U/L (12-78) L Alkaline Phosphatase 45 U/L (46-116) L Total Creatine Kinase 33 U/L (26-308) Troponin I 0.007 ng/mL (0.000-0.056) C-Reactive Protein, Quantitative < 0.4 mg/dL (0.00-0.90) Total Protein 5.2 G/DL (6.4-8.2) L Albumin 2.1 G/DL (3.4-5.0) L Globulin 3.1 g/dL Albumin/Globulin Ratio 0.7 (1.0-2.7) L Vitamin B12 Level 1251 PG/ML (193-986) H Folate 11.0 NG/ML (8.6-58.9) Thyroid Stimulating Hormone (TSH) 8.538 uiU/mL (0.358-3.740) Valproic Acid (Depakene) Level 76 MCG/ML (50-100) Microbiology Date/Time Source Procedure Growth Status 04/15/19 19:55 Rectum Received Intake and Output 04/16/19 04/17/19 18:59 06:59 Intake Total 1230 ml 620 ml Balance 1230 ml 620 ml Intake Oral 480 ml 120 ml IV Total 750 ml 500 ml # Voids 3 3 Objective PHYSICAL EXAMINATION: GENERAL: The patient is awake and responsive, in no acute distress. HEAD AND NECK: Pupils are reactive to light. Extraocular movements intact. NECK: Supple. No JVD. LUNGS: Good air entry. No wheezing or rales. HEART: Reveals S1, S2. Regular rhythm. No gallop. ABDOMEN: Soft, nondistended, and nontender. Morbidly obese. EXTREMITIES: No cyanosis, clubbing, or edema. NEUROLOGIC: Cranial nerves II through XII grossly intact. Motor is 5+ in all extremities. Gait is ataxic. RECTAL/GENITOURINARY: Refused and deferred. PSYCHIATRIC: Mood and affect is intact. Assessment/Plan Assessment/Plan ASSESSMENT: 1. Vertigo/Ataxia possibly due to the severe hyponatremia. 2. Dehydration. 3. Hyponatremia, possible due to dehydration in conjunction with SIADH. 4. Hypertension. 5. Diabetes type 2. 6. GERD. 7. Depression. 8. History of right frontal craniotomy. PLAN: 1. Admit the patient to medical floor. 2. Start the patient on NS. 3. Monitor laboratory closely. 4. Follow up with the Nephrology consultation as well as Neurology if need to. 5. Code status Full Code. 6. DVT prophylaxis with heparin subcutaneous. Bautista Miranda MD Apr 17, 2019 17:42
--- NOTE | 2019-04-17 19:15 | NUR ---
HAND-OFF: Report given to CHA Brown.
--- NOTE | 2019-04-17 19:30 | NUR ---
NURSE NOTES: Patient asleep but easily awaken by foot steps. Pt verbalized feeling better today. Reminded her to use call light for assistance. Call light and needs in reach. Will continue to monitor.
[2019-04-17 20:00] VITALS: BP 118/75
[2019-04-18] VITALS: BP 113/60
[2019-04-18 04:00] VITALS: BP 98/57
[2019-04-18] MEDS: GlipiZIDE 5mg tab ORAL SCH ×2 (06:17→16:09)
[2019-04-18] MEDS: NovoLOG Insulin Flexpen SUBQ SCH ×4 (06:23→21:06)
--- NOTE | 2019-04-18 06:40 | NUR ---
NURSE NOTES: Patient had blood sugar of 61 1 cup of juice was given. Rechecked after 15 mins went up to 88 and per patient's request of another cup of juice was given. Notified Dr. Schofield.
--- NOTE | 2019-04-18 07:30 | NUR ---
HAND-OFF: Report given to [facility].
--- NOTE | 2019-04-18 07:49 | NUR ---
NURSE NOTES: Patient received in stable condition, resting in bed. Breathing unlabored on room air, denies pain or SOB at this time. IV on left hand patent and intact, running fluids at 30cc/hr. To be saline locked when fluid is complete. Bed locked in lowest position. Call light placed within reach, will continue to monitor.
[2019-04-18 08:00] VITALS: BP 136/84
[2019-04-18 08:19] LABS: BASOPHILS % (AUTO) 1.6 % (0.0-2.0); EOSINOPHILS % (AUTO) 3.8 % (0.0-3.0); HEMATOCRIT 31.7 % (37.0-47.0); HEMOGLOBIN 10.7 G/DL (12.0-16.0); LYMPHOCYTES % (AUTO) 45.1 % (20.0-45.0); MEAN CORPUSCULAR VOLUME 89 FL (80-99); MONOCYTES % (AUTO) 8.9 % (1.0-10.0); NEUTROPHILS % (AUTO) 40.6 % (45.0-75.0); PLATELET COUNT 133 K/UL (150-450); RED BLOOD COUNT 3.56 M/UL (4.20-5.40); RED CELL DISTRIBUTION WIDTH 15.2 % (11.6-14.8); WHITE BLOOD COUNT 8.7 K/UL (4.8-10.8)
[2019-04-18 08:26] LABS: ANION GAP 5 mmol/L (5-15); BLOOD UREA NITROGEN 23 mg/dL (7-18); CALCIUM 8.6 MG/DL (8.5-10.1); CARBON DIOXIDE 27 MMOL/L (21-32); CHLORIDE 102 MMOL/L (98-107); CREATININE 1.3 MG/DL (0.55-1.30); POTASSIUM 4.1 MMOL/L (3.5-5.1); SODIUM 134 MMOL/L (136-145)
[2019-04-18] MEDS: Heparin 5000 units/ml inj SUBQ SCH ×2 (09:00→21:00)
[2019-04-18] MEDS: Lisinopril 10mg tab ORAL SCH (09:47)
[2019-04-18] MEDS: FLUoxetine 10mg cap ORAL SCH (09:47)
[2019-04-18] MEDS: Depakote ER 500mg tab ORAL SCH (09:47)
[2019-04-18 12:00] VITALS: BP 120/75
[2019-04-18] MEDS ORDERED: Iron Sucrose 200 MG in NS 110 ML IV ONE (13:00)
--- NOTE | 2019-04-18 15:52 | Internal Med Progress Note ---
Subjective Date of Service: Apr 18, 2019 Physician Name Miranda,Bautista Attending Physician Nelson Schofield MD Current Medications Medications (Trade) Dose Ordered Sig/Ingrid Route PRN Reason Start Time Stop Time Status Last Admin Dose Admin Acetaminophen (Tylenol) 650 mg Q6H PRN ORAL Mild Pain/Temp > 100.5 04/16/19 07:15 05/16/19 07:14 Atorvastatin Calcium (Lipitor) 10 mg BEDTIME ORAL 04/16/19 21:00 05/16/19 20:59 04/17/19 20:01 Dextrose (Dextrose 50%) 25 ml Q30M PRN IV Hypoglycemia 04/16/19 07:15 05/16/19 07:14 Dextrose (Dextrose 50%) 50 ml Q30M PRN IV Hypoglycemia 04/16/19 07:15 05/16/19 07:14 Divalproex Sodium (Depakote ER) 500 mg DAILY ORAL 04/16/19 09:00 05/16/19 08:59 04/18/19 09:47 Divalproex Sodium (Depakote) 750 mg QHS ORAL 04/16/19 21:00 05/16/19 20:59 04/17/19 20:01 Famotidine (Pepcid) 20 mg QHS ORAL 04/16/19 21:00 05/16/19 20:59 04/17/19 20:01 Fluoxetine HCl (PROzac) 10 mg DAILY ORAL 04/16/19 09:00 05/16/19 08:59 04/18/19 09:47 Glipizide (Glucotrol) 10 mg BIAC ORAL 04/16/19 16:30 05/16/19 16:29 04/18/19 06:17 Heparin Sodium (Porcine) (Heparin 5000 units/ml) 5,000 units EVERY 12 HOURS SUBQ 04/16/19 09:00 05/16/19 08:59 Hydralazine HCl (Apresoline) 25 mg Q4H PRN ORAL SBP > 160mmHg 04/17/19 10:07 05/17/19 10:06 Insulin Aspart (NovoLOG) BEFORE MEALS AND HS SUBQ 04/16/19 11:30 05/16/19 11:29 04/18/19 11:43 Levothyroxine Sodium (Synthroid) 50 mcg DAILY@0630 ORAL 04/18/19 06:30 05/18/19 06:29 04/18/19 06:17 Lisinopril (Zestril) 10 mg DAILY ORAL 04/16/19 09:00 05/16/19 08:59 04/18/19 09:47 Ondansetron HCl (Zofran) 4 mg Q4H PRN IVP Nausea & Vomiting 04/16/19 07:15 05/16/19 07:14 Quetiapine Fumarate (SEROquel) 100 mg QHS ORAL 04/16/19 21:00 05/16/19 20:59 04/17/19 20:01 Sodium Chloride 250 ml @ 30 mls/hr ONCE ONCE IV 04/18/19 13:30 04/18/19 21:49 Allergies: Coded Allergies: No Known Allergies (Unverified , 04/15/19) ROS Limited/Unobtainable: No Constitutional: Reports: no symptoms HEENT: Reports: no symptoms Cardiovascular: Reports: no symptoms Respiratory: Reports: no symptoms Gastrointestinal/Abdominal: Reports: no symptoms Genitourinary: Reports: no symptoms Neurologic/Psychiatric: Reports: no symptoms Subjective 64 YO F admitted with vertigo and ataxia. Now hyponatremia. Cover for Int [facility] -Dr Schofield Objective Last Vital Signs Date Time Temp Pulse Resp B/P (MAP) Pulse Ox O2 Delivery O2 Flow Rate FiO2 04/18/19 12:00 97.6 69 18 120/75 (90) 98 04/18/19 09:00 Room Air Laboratory Tests Test 04/18/19 06:15 White Blood Count 8.7 K/UL (4.8-10.8) Red Blood Count 3.56 M/UL (4.20-5.40) L Hemoglobin 10.7 G/DL (12.0-16.0) L Hematocrit 31.7 % (37.0-47.0) L Mean Corpuscular Volume 89 FL (80-99) Mean Corpuscular Hemoglobin 29.9 PG (27.0-31.0) Mean Corpuscular Hemoglobin Concent 33.6 G/DL (32.0-36.0) Red Cell Distribution Width 15.2 % (11.6-14.8) H Platelet Count 133 K/UL (150-450) L Mean Platelet Volume 6.0 FL (6.5-10.1) L Neutrophils (%) (Auto) 40.6 % (45.0-75.0) L Lymphocytes (%) (Auto) 45.1 % (20.0-45.0) H Monocytes (%) (Auto) 8.9 % (1.0-10.0) Eosinophils (%) (Auto) 3.8 % (0.0-3.0) H Basophils (%) (Auto) 1.6 % (0.0-2.0) Sodium Level 134 MMOL/L (136-145) L Potassium Level 4.1 MMOL/L (3.5-5.1) Chloride Level 102 MMOL/L (98-107) Carbon Dioxide Level 27 MMOL/L (21-32) Anion Gap 5 mmol/L (5-15) Blood Urea Nitrogen 23 mg/dL (7-18) H Creatinine 1.3 MG/DL (0.55-1.30) Estimat Glomerular Filtration Rate 41.4 mL/min (>60) Glucose Level 73 MG/DL (74-106) L Calcium Level 8.6 MG/DL (8.5-10.1) Microbiology Date/Time Source Procedure Growth Status 04/15/19 19:55 Nasal Nares MRSA Culture - Final NO METHICILLIN RESISTANT STAPH AUREUS... Complete 04/15/19 19:55 Rectum VRE Culture - Final NO VANCOMYCIN RESISTANT ENTEROCOCCUS ... Complete 04/15/19 19:55 Rectum - Final NO CARBAPENEM-RESISTANT ENTEROBACTERI... Complete Intake and Output 04/17/19 04/18/19 18:59 06:59 Intake Total 720 ml 600 ml Balance 720 ml 600 ml Intake Oral 600 ml 600 ml IV Total 120 ml # Voids 4 4 Objective PHYSICAL EXAMINATION: GENERAL: The patient is awake and responsive, in no acute distress. HEAD AND NECK: Pupils are reactive to light. Extraocular movements intact. NECK: Supple. No JVD. LUNGS: Good air entry. No wheezing or rales. HEART: Reveals S1, S2. Regular rhythm. No gallop. ABDOMEN: Soft, nondistended, and nontender. Morbidly obese. EXTREMITIES: No cyanosis, clubbing, or edema. NEUROLOGIC: Cranial nerves II through XII grossly intact. Motor is 5+ in all extremities. Gait is ataxic. RECTAL/GENITOURINARY: Refused and deferred. PSYCHIATRIC: Mood and affect is intact. Assessment/Plan Assessment/Plan ASSESSMENT: 1. Vertigo/Ataxia possibly due to the severe hyponatremia. 2. Dehydration. 3. Hyponatremia, possible due to dehydration in conjunction with SIADH. 4. Hypertension. 5. Diabetes type 2. 6. GERD. 7. Depression. 8. History of right frontal craniotomy. PLAN: 1. Admit the patient to medical floor. 2. Start the patient on NS. 3. Monitor laboratory closely. 4. Follow up with the Nephrology consultation as well as Neurology if need to. 5. Code status Full Code. 6. DVT prophylaxis with heparin subcutaneous. Bautista Miranda MD Apr 18, 2019 15:51
[2019-04-18 16:00] VITALS: BP 145/89
--- NOTE | 2019-04-18 19:48 | Pulmonology Progress Note ---
Assessment/Plan Problems: (1) Acute encephalopathy (2) Hyponatremia (3) Weakness (4) Psychosis (5) Episode of generalized weakness (6) Diabetes mellitus Assessment/Plan feeling better still very weak sliding scale pt/ot neuro evaluation Subjective ROS Limited/Unobtainable: No Constitutional: Reports: no symptoms HEENT: Repors: no symptoms Allergies: Coded Allergies: No Known Allergies (Unverified , 04/15/19) Objective Last 24 Hour Vital Signs Date Time Temp Pulse Resp B/P (MAP) Pulse Ox O2 Delivery O2 Flow Rate FiO2 04/18/19 16:00 98.6 86 18 145/89 (107) 96 04/18/19 12:00 97.6 69 18 120/75 (90) 98 04/18/19 09:47 98/57 04/18/19 09:00 Room Air 04/18/19 08:00 96.7 77 18 136/84 (101) 98 04/18/19 04:00 98.6 65 19 98/57 (71) 99 04/18/19 00:00 98.9 70 19 113/60 (77) 96 04/17/19 21:00 Room Air 04/17/19 20:00 99.3 86 19 118/75 (89) 95 Intake and Output 04/17/19 04/18/19 18:59 06:59 Intake Total 720 ml 600 ml Balance 720 ml 600 ml Intake Oral 600 ml 600 ml IV Total 120 ml # Voids 4 4 General Appearance: WD/WN HEENT: normocephalic, atraumatic Respiratory/Chest: chest wall non-tender, lungs clear Abdomen: normal bowel sounds, soft, non tender Genitourinary: normal external genitalia Extremities: no clubbing Skin: no rash Microbiology Date/Time Source Procedure Growth Status 04/15/19 19:55 Nasal Nares MRSA Culture - Final NO METHICILLIN RESISTANT STAPH AUREUS... Complete 04/15/19 19:55 Rectum VRE Culture - Final NO VANCOMYCIN RESISTANT ENTEROCOCCUS ... Complete 04/15/19 19:55 Rectum - Final NO CARBAPENEM-RESISTANT ENTEROBACTERI... Complete Laboratory Tests 04/18/19 06:15: White Blood Count 8.7, Red Blood Count 3.56L, Hemoglobin 10.7L, Hematocrit 31.7L , Mean Corpuscular Volume 89, Mean Corpuscular Hemoglobin 29.9, Mean Corpuscular Hemoglobin Concent 33.6, Red Cell Distribution Width 15.2H, Platelet Count 133L, Mean Platelet Volume 6.0L, Neutrophils (%) (Auto) 40.6L, Lymphocytes (%) (Auto) 45.1H, Monocytes (%) (Auto) 8.9, Eosinophils (%) (Auto) 3.8H, Basophils (%) (Auto) 1.6, Sodium Level 134L, Potassium Level 4.1, Chloride Level 102, Carbon Dioxide Level 27, Anion Gap 5, Blood Urea Nitrogen 23H, Creatinine 1.3, Estimat Glomerular Filtration Rate 41.4, Glucose Level 73L , Calcium Level 8.6 Current Medications Medications (Trade) Dose Ordered Sig/Ingrid Route PRN Reason Start Time Stop Time Status Last Admin Dose Admin Acetaminophen (Tylenol) 650 mg Q6H PRN ORAL Mild Pain/Temp > 100.5 04/16/19 07:15 05/16/19 07:14 Atorvastatin Calcium (Lipitor) 10 mg BEDTIME ORAL 04/16/19 21:00 05/16/19 20:59 04/17/19 20:01 Dextrose (Dextrose 50%) 25 ml Q30M PRN IV Hypoglycemia 04/16/19 07:15 05/16/19 07:14 Dextrose (Dextrose 50%) 50 ml Q30M PRN IV Hypoglycemia 04/16/19 07:15 05/16/19 07:14 Divalproex Sodium (Depakote ER) 500 mg DAILY ORAL 04/16/19 09:00 05/16/19 08:59 04/18/19 09:47 Divalproex Sodium (Depakote) 750 mg QHS ORAL 04/16/19 21:00 05/16/19 20:59 04/17/19 20:01 Famotidine (Pepcid) 20 mg QHS ORAL 04/16/19 21:00 05/16/19 20:59 04/17/19 20:01 Fluoxetine HCl (PROzac) 10 mg DAILY ORAL 04/16/19 09:00 05/16/19 08:59 04/18/19 09:47 Glipizide (Glucotrol) 10 mg BIAC ORAL 04/16/19 16:30 05/16/19 16:29 04/18/19 16:09 Heparin Sodium (Porcine) (Heparin 5000 units/ml) 5,000 units EVERY 12 HOURS SUBQ 04/16/19 09:00 05/16/19 08:59 Hydralazine HCl (Apresoline) 25 mg Q4H PRN ORAL SBP > 160mmHg 04/17/19 10:07 05/17/19 10:06 Insulin Aspart (NovoLOG) BEFORE MEALS AND HS SUBQ 04/16/19 11:30 05/16/19 11:29 04/18/19 11:43 Levothyroxine Sodium (Synthroid) 50 mcg DAILY@0630 ORAL 04/18/19 06:30 05/18/19 06:29 04/18/19 06:17 Lisinopril (Zestril) 10 mg DAILY ORAL 04/16/19 09:00 05/16/19 08:59 04/18/19 09:47 Ondansetron HCl (Zofran) 4 mg Q4H PRN IVP Nausea & Vomiting 04/16/19 07:15 05/16/19 07:14 Quetiapine Fumarate (SEROquel) 100 mg QHS ORAL 04/16/19 21:00 05/16/19 20:59 04/17/19 20:01 Sodium Chloride 250 ml @ 30 mls/hr ONCE ONCE IV 04/18/19 13:30 04/18/19 21:49 04/18/19 16:09 Theresa Silveira MD Apr 18, 2019 19:48
[2019-04-18 20:00] VITALS: BP 165/83
--- NOTE | 2019-04-18 20:22 | NUR ---
NURSE NOTES: Received patient in bed. AAO x 2, Room air. Pt is on fluid restriction PO 800cc/24h started 11am on 04/18. IV site intact and patent. No pain and no acute distress noted at this time. Bed locked, lowest position, alarm on, call light within reach. Will continue to monitor.
[2019-04-19] VITALS: BP 105/62
[2019-04-19 04:00] VITALS: BP 125/70
--- NOTE | 2019-04-19 04:30 | NUR ---
NURSE NOTES: Moved pt room to 418-1 as requested by patient.
[2019-04-19] MEDS: NovoLOG Insulin Flexpen SUBQ SCH ×4 (06:30→20:32)
[2019-04-19] MEDS: GlipiZIDE 5mg tab ORAL SCH ×2 (06:30→16:44)
--- NOTE | 2019-04-19 06:56 | NUR ---
NURSE NOTES: Blood sugar 93 @0540. Called Dr. Schofield to verify glucotrol meds. Per doctor, glucotrol 5mg given.
[2019-04-19] MEDS ORDERED: GlipiZIDE 5mg tab ORAL SCH (07:15)
--- NOTE | 2019-04-19 07:30 | NUR ---
HAND-OFF: Report given to CHA De La Vega.
--- NOTE | 2019-04-19 07:48 | NUR ---
NURSE NOTES: Received pt in bed, sleeping. No s/s of distress/pain. On room air. IV on L hand intact and patent, with saline lock. Bed in the lowest and locked. Call light within reach. Will continue to monitor
[2019-04-19 07:58] LABS: BASOPHILS % (AUTO) 1.4 % (0.0-2.0); HEMATOCRIT 31.7 % (37.0-47.0); HEMOGLOBIN 10.7 G/DL (12.0-16.0); LYMPHOCYTES % (AUTO) 39.5 % (20.0-45.0); MEAN CORPUSCULAR VOLUME 89 FL (80-99); MONOCYTES % (AUTO) 11.2 % (1.0-10.0); NEUTROPHILS % (AUTO) 43.9 % (45.0-75.0); PLATELET COUNT 127 K/UL (150-450); RED BLOOD COUNT 3.54 M/UL (4.20-5.40); WHITE BLOOD COUNT 9.2 K/UL (4.8-10.8)
[2019-04-19 08:00] VITALS: BP 146/77
[2019-04-19 08:45] LABS: ALANINE AMINOTRANSFERASE 9 U/L (12-78); ALBUMIN 2.3 G/DL (3.4-5.0); ALBUMIN/GLOBULIN RATIO 0.7 (1.0-2.7); ALKALINE PHOSPHATASE 43 U/L (46-116); ANION GAP 7 mmol/L (5-15); ASPARTATE AMINO TRANSFERASE 15 U/L (15-37); BILIRUBIN,TOTAL 0.2 MG/DL (0.2-1.0); BLOOD UREA NITROGEN 27 mg/dL (7-18); CALCIUM 8.8 MG/DL (8.5-10.1); CARBON DIOXIDE 25 MMOL/L (21-32); CHLORIDE 99 MMOL/L (98-107); CREATININE 1.2 MG/DL (0.55-1.30); PHOSPHORUS 3.8 MG/DL (2.5-4.9); POTASSIUM 3.9 MMOL/L (3.5-5.1); SODIUM 131 MMOL/L (136-145)
[2019-04-19] MEDS: Heparin 5000 units/ml inj SUBQ SCH ×2 (09:00→20:28)
[2019-04-19] MEDS: FLUoxetine 10mg cap ORAL SCH (09:33)
[2019-04-19] MEDS: Depakote ER 500mg tab ORAL SCH (09:33)
[2019-04-19] MEDS: Lisinopril 10mg tab ORAL SCH (09:33)
[2019-04-19] MEDS ORDERED: NaCl 3% 500ml 250 ML IV ONE (10:00)
--- NOTE | 2019-04-19 11:41 | Nephrology Progress Note ---
Assessment/Plan Problem List: (1) Hyponatremia Assessment: mixed picture (2) Diabetes mellitus (3) Psychosis (4) Anemia Assessment HypoNatremia. Etiology: Depletional / SIADH DM , OOC , elevated A1c Mild Anemia HypoAlbuminemia Plan Start Synthroid UOs SOs TSH elevated Uric Acid Low 3% saline trial Urine spot Na high per orders Subjective ROS Limited/Unobtainable: No Constitutional: Reports: malaise, weakness Objective Objective Last 24 Hour Vital Signs Date Time Temp Pulse Resp B/P (MAP) Pulse Ox O2 Delivery O2 Flow Rate FiO2 04/19/19 09:33 146/77 04/19/19 09:00 Room Air 04/19/19 08:00 98.0 60 18 146/77 (100) 94 04/19/19 04:00 98.7 73 19 125/70 (88) 95 04/19/19 00:00 98.5 67 19 105/62 (76) 98 04/18/19 21:00 Room Air 04/18/19 20:00 98.9 88 19 165/83 (110) 96 04/18/19 16:00 98.6 86 18 145/89 (107) 96 04/18/19 12:00 97.6 69 18 120/75 (90) 98 Intake and Output 04/18/19 04/19/19 19:00 07:00 Intake Total 480 ml 180 ml Balance 480 ml 180 ml Intake Oral 480 ml 180 ml # Voids 2 1 Laboratory Tests 04/19/19 05:33: White Blood Count 9.2, Red Blood Count 3.54L, Hemoglobin 10.7L, Hematocrit 31.7L , Mean Corpuscular Volume 89, Mean Corpuscular Hemoglobin 30.3, Mean Corpuscular Hemoglobin Concent 33.9, Red Cell Distribution Width 15.0H, Platelet Count 127L, Mean Platelet Volume 5.9L, Neutrophils (%) (Auto) 43.9L, Lymphocytes (%) (Auto) 39.5, Monocytes (%) (Auto) 11.2H, Eosinophils (%) (Auto) 4.0H, Basophils (%) (Auto) 1.4, Sodium Level 131L, Potassium Level 3.9, Chloride Level 99, Carbon Dioxide Level 25, Anion Gap 7, Blood Urea Nitrogen 27H , Creatinine 1.2, Estimat Glomerular Filtration Rate 45.3, Glucose Level 61L, Uric Acid 4.5, Calcium Level 8.8, Phosphorus Level 3.8, Magnesium Level 1.6L, Total Bilirubin 0.2, Aspartate Amino Transf (AST/SGOT) 15, Alanine Aminotransferase (ALT/SGPT) 9L, Alkaline Phosphatase 43L, Total Protein 5.6L, Albumin 2.3L, Globulin 3.3, Albumin/Globulin Ratio 0.7L Height (Feet): 5 Height (Inches): 0.00 Weight (Pounds): 152 Objective no change Alfonso Baez MD Apr 19, 2019 11:41
[2019-04-19 12:00] VITALS: BP 139/78
--- NOTE | 2019-04-19 13:41 | Pulmonology Progress Note ---
Assessment/Plan Problems: (1) Acute encephalopathy (2) Hyponatremia (3) Weakness (4) Psychosis (5) Episode of generalized weakness (6) Diabetes mellitus Assessment/Plan all noted feeling better still very weak sliding scale pt/ot neuro evaluation Subjective ROS Limited/Unobtainable: No Constitutional: Reports: no symptoms HEENT: Repors: no symptoms Allergies: Coded Allergies: No Known Allergies (Unverified , 04/15/19) Objective Last 24 Hour Vital Signs Date Time Temp Pulse Resp B/P (MAP) Pulse Ox O2 Delivery O2 Flow Rate FiO2 04/19/19 12:00 98.1 72 18 139/78 (98) 95 04/19/19 09:33 146/77 04/19/19 09:00 Room Air 04/19/19 08:00 98.0 60 18 146/77 (100) 94 04/19/19 04:00 98.7 73 19 125/70 (88) 95 04/19/19 00:00 98.5 67 19 105/62 (76) 98 04/18/19 21:00 Room Air 04/18/19 20:00 98.9 88 19 165/83 (110) 96 04/18/19 16:00 98.6 86 18 145/89 (107) 96 Intake and Output 04/18/19 04/19/19 19:00 07:00 Intake Total 480 ml 180 ml Balance 480 ml 180 ml Intake Oral 480 ml 180 ml # Voids 2 1 General Appearance: WD/WN HEENT: atraumatic Respiratory/Chest: chest wall non-tender, lungs clear Breasts: no masses Cardiovascular: normal rate Abdomen: normal bowel sounds, no organomegaly Genitourinary: normal external genitalia 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 Laboratory Tests 04/19/19 05:33: White Blood Count 9.2, Red Blood Count 3.54L, Hemoglobin 10.7L, Hematocrit 31.7L , Mean Corpuscular Volume 89, Mean Corpuscular Hemoglobin 30.3, Mean Corpuscular Hemoglobin Concent 33.9, Red Cell Distribution Width 15.0H, Platelet Count 127L, Mean Platelet Volume 5.9L, Neutrophils (%) (Auto) 43.9L, Lymphocytes (%) (Auto) 39.5, Monocytes (%) (Auto) 11.2H, Eosinophils (%) (Auto) 4.0H, Basophils (%) (Auto) 1.4, Sodium Level 131L, Potassium Level 3.9, Chloride Level 99, Carbon Dioxide Level 25, Anion Gap 7, Blood Urea Nitrogen 27H , Creatinine 1.2, Estimat Glomerular Filtration Rate 45.3, Glucose Level 61L, Uric Acid 4.5, Calcium Level 8.8, Phosphorus Level 3.8, Magnesium Level 1.6L, Total Bilirubin 0.2, Aspartate Amino Transf (AST/SGOT) 15, Alanine Aminotransferase (ALT/SGPT) 9L, Alkaline Phosphatase 43L, Total Protein 5.6L, Albumin 2.3L, Globulin 3.3, Albumin/Globulin Ratio 0.7L Current Medications Medications (Trade) Dose Ordered Sig/Ingrid Route PRN Reason Start Time Stop Time Status Last Admin Dose Admin Acetaminophen (Tylenol) 650 mg Q6H PRN ORAL Mild Pain/Temp > 100.5 04/16/19 07:15 05/16/19 07:14 Atorvastatin Calcium (Lipitor) 10 mg BEDTIME ORAL 04/16/19 21:00 05/16/19 20:59 04/18/19 20:58 Dextrose (Dextrose 50%) 25 ml Q30M PRN IV Hypoglycemia 04/16/19 07:15 05/16/19 07:14 Dextrose (Dextrose 50%) 50 ml Q30M PRN IV Hypoglycemia 04/16/19 07:15 05/16/19 07:14 Divalproex Sodium (Depakote ER) 500 mg DAILY ORAL 04/16/19 09:00 05/16/19 08:59 04/19/19 09:33 Divalproex Sodium (Depakote) 750 mg QHS ORAL 04/16/19 21:00 05/16/19 20:59 04/18/19 20:58 Famotidine (Pepcid) 20 mg QHS ORAL 04/16/19 21:00 05/16/19 20:59 04/18/19 20:58 Fluoxetine HCl (PROzac) 10 mg DAILY ORAL 04/16/19 09:00 05/16/19 08:59 04/19/19 09:33 Glipizide (Glucotrol) 10 mg BIAC ORAL 04/16/19 16:30 05/16/19 16:29 04/18/19 16:09 Heparin Sodium (Porcine) (Heparin 5000 units/ml) 5,000 units EVERY 12 HOURS SUBQ 04/16/19 09:00 05/16/19 08:59 Hydralazine HCl (Apresoline) 25 mg Q4H PRN ORAL SBP > 160mmHg 04/17/19 10:07 05/17/19 10:06 Insulin Aspart (NovoLOG) BEFORE MEALS AND HS SUBQ 04/16/19 11:30 05/16/19 11:29 04/19/19 11:55 Levothyroxine Sodium (Synthroid) 50 mcg DAILY@0630 ORAL 04/18/19 06:30 05/18/19 06:29 04/19/19 05:51 Lisinopril (Zestril) 10 mg DAILY ORAL 04/16/19 09:00 05/16/19 08:59 04/19/19 09:33 Magnesium Sulfate 100 ml @ 100 mls/hr Q1H IVPB 04/19/19 10:00 04/19/19 13:59 04/19/19 13:04 Ondansetron HCl (Zofran) 4 mg Q4H PRN IVP Nausea & Vomiting 04/16/19 07:15 05/16/19 07:14 Quetiapine Fumarate (SEROquel) 100 mg QHS ORAL 04/16/19 21:00 05/16/19 20:59 04/18/19 20:58 Sodium Chloride 250 ml @ 30 mls/hr ONCE ONCE IV 04/19/19 10:00 04/19/19 18:19 04/19/19 10:40 Theresa Silveira MD Apr 19, 2019 13:41
--- NOTE | 2019-04-19 13:47 | Internal Med Progress Note ---
Subjective Date of Service: Apr 19, 2019 Physician Name Miranda,Bautista Attending Physician Nelson Schofield MD Current Medications Medications (Trade) Dose Ordered Sig/Ingrid Route PRN Reason Start Time Stop Time Status Last Admin Dose Admin Acetaminophen (Tylenol) 650 mg Q6H PRN ORAL Mild Pain/Temp > 100.5 04/16/19 07:15 05/16/19 07:14 Atorvastatin Calcium (Lipitor) 10 mg BEDTIME ORAL 04/16/19 21:00 05/16/19 20:59 04/18/19 20:58 Dextrose (Dextrose 50%) 25 ml Q30M PRN IV Hypoglycemia 04/16/19 07:15 05/16/19 07:14 Dextrose (Dextrose 50%) 50 ml Q30M PRN IV Hypoglycemia 04/16/19 07:15 05/16/19 07:14 Divalproex Sodium (Depakote ER) 500 mg DAILY ORAL 04/16/19 09:00 05/16/19 08:59 04/19/19 09:33 Divalproex Sodium (Depakote) 750 mg QHS ORAL 04/16/19 21:00 05/16/19 20:59 04/18/19 20:58 Famotidine (Pepcid) 20 mg QHS ORAL 04/16/19 21:00 05/16/19 20:59 04/18/19 20:58 Fluoxetine HCl (PROzac) 10 mg DAILY ORAL 04/16/19 09:00 05/16/19 08:59 04/19/19 09:33 Glipizide (Glucotrol) 10 mg BIAC ORAL 04/16/19 16:30 05/16/19 16:29 04/18/19 16:09 Heparin Sodium (Porcine) (Heparin 5000 units/ml) 5,000 units EVERY 12 HOURS SUBQ 04/16/19 09:00 05/16/19 08:59 Hydralazine HCl (Apresoline) 25 mg Q4H PRN ORAL SBP > 160mmHg 04/17/19 10:07 05/17/19 10:06 Insulin Aspart (NovoLOG) BEFORE MEALS AND HS SUBQ 04/16/19 11:30 05/16/19 11:29 04/19/19 11:55 Levothyroxine Sodium (Synthroid) 50 mcg DAILY@0630 ORAL 04/18/19 06:30 05/18/19 06:29 04/19/19 05:51 Lisinopril (Zestril) 10 mg DAILY ORAL 04/16/19 09:00 05/16/19 08:59 04/19/19 09:33 Magnesium Sulfate 100 ml @ 100 mls/hr Q1H IVPB 04/19/19 10:00 04/19/19 13:59 04/19/19 13:04 Ondansetron HCl (Zofran) 4 mg Q4H PRN IVP Nausea & Vomiting 04/16/19 07:15 05/16/19 07:14 Quetiapine Fumarate (SEROquel) 100 mg QHS ORAL 04/16/19 21:00 05/16/19 20:59 04/18/19 20:58 Sodium Chloride 250 ml @ 30 mls/hr ONCE ONCE IV 04/19/19 10:00 04/19/19 18:19 04/19/19 10:40 Allergies: Coded Allergies: No Known Allergies (Unverified , 04/15/19) ROS Limited/Unobtainable: No Constitutional: Reports: no symptoms HEENT: Reports: no symptoms Cardiovascular: Reports: no symptoms Respiratory: Reports: no symptoms Gastrointestinal/Abdominal: Reports: no symptoms Genitourinary: Reports: no symptoms Neurologic/Psychiatric: Reports: no symptoms Subjective 64 YO F admitted with vertigo and ataxia. Now hyponatremia. Cover for Int [facility] -Dr Schofield Objective Last Vital Signs Date Time Temp Pulse Resp B/P (MAP) Pulse Ox O2 Delivery O2 Flow Rate FiO2 04/19/19 12:00 98.1 72 18 139/78 (98) 95 04/19/19 09:00 Room Air Laboratory Tests Test 04/19/19 05:33 White Blood Count 9.2 K/UL (4.8-10.8) Red Blood Count 3.54 M/UL (4.20-5.40) L Hemoglobin 10.7 G/DL (12.0-16.0) L Hematocrit 31.7 % (37.0-47.0) L Mean Corpuscular Volume 89 FL (80-99) Mean Corpuscular Hemoglobin 30.3 PG (27.0-31.0) Mean Corpuscular Hemoglobin Concent 33.9 G/DL (32.0-36.0) Red Cell Distribution Width 15.0 % (11.6-14.8) H Platelet Count 127 K/UL (150-450) L Mean Platelet Volume 5.9 FL (6.5-10.1) L Neutrophils (%) (Auto) 43.9 % (45.0-75.0) L Lymphocytes (%) (Auto) 39.5 % (20.0-45.0) Monocytes (%) (Auto) 11.2 % (1.0-10.0) H Eosinophils (%) (Auto) 4.0 % (0.0-3.0) H Basophils (%) (Auto) 1.4 % (0.0-2.0) Sodium Level 131 MMOL/L (136-145) L Potassium Level 3.9 MMOL/L (3.5-5.1) Chloride Level 99 MMOL/L (98-107) Carbon Dioxide Level 25 MMOL/L (21-32) Anion Gap 7 mmol/L (5-15) Blood Urea Nitrogen 27 mg/dL (7-18) H Creatinine 1.2 MG/DL (0.55-1.30) Estimat Glomerular Filtration Rate 45.3 mL/min (>60) Glucose Level 61 MG/DL (74-106) L Uric Acid 4.5 MG/DL (2.6-7.2) Calcium Level 8.8 MG/DL (8.5-10.1) Phosphorus Level 3.8 MG/DL (2.5-4.9) Magnesium Level 1.6 MG/DL (1.8-2.4) L Total Bilirubin 0.2 MG/DL (0.2-1.0) Aspartate Amino Transf (AST/SGOT) 15 U/L (15-37) Alanine Aminotransferase (ALT/SGPT) 9 U/L (12-78) L Alkaline Phosphatase 43 U/L (46-116) L Total Protein 5.6 G/DL (6.4-8.2) L Albumin 2.3 G/DL (3.4-5.0) L Globulin 3.3 g/dL Albumin/Globulin Ratio 0.7 (1.0-2.7) L Intake and Output 04/18/19 04/19/19 19:00 07:00 Intake Total 480 ml 180 ml Balance 480 ml 180 ml Intake Oral 480 ml 180 ml # Voids 2 1 Objective PHYSICAL EXAMINATION: GENERAL: The patient is awake and responsive, in no acute distress. HEAD AND NECK: Pupils are reactive to light. Extraocular movements intact. NECK: Supple. No JVD. LUNGS: Good air entry. No wheezing or rales. HEART: Reveals S1, S2. Regular rhythm. No gallop. ABDOMEN: Soft, nondistended, and nontender. Morbidly obese. EXTREMITIES: No cyanosis, clubbing, or edema. NEUROLOGIC: Cranial nerves II through XII grossly intact. Motor is 5+ in all extremities. Gait is ataxic. RECTAL/GENITOURINARY: Refused and deferred. PSYCHIATRIC: Mood and affect is intact. Assessment/Plan Assessment/Plan ASSESSMENT: 1. Vertigo/Ataxia possibly due to the severe hyponatremia. 2. Dehydration. 3. Hyponatremia, possible due to dehydration in conjunction with SIADH. 4. Hypertension. 5. Diabetes type 2. 6. GERD. 7. Depression. 8. History of right frontal craniotomy. PLAN: 1. Admit the patient to medical floor. 2. Start the patient on NS. 3. Monitor laboratory closely. 4. Follow up with the Nephrology consultation as well as Neurology if need to. 5. Code status Full Code. 6. DVT prophylaxis with heparin subcutaneous. Bautista Miranda MD Apr 19, 2019 13:47
[2019-04-19 16:00] VITALS: BP 151/78
--- NOTE | 2019-04-19 17:19 | NUR ---
DISCHARGE PLANNING Discharge order noted Patient could not return to [facility], patient requires higher level of care. Patient has been referred to [facility] on [phone] Await Acceptance
--- NOTE | 2019-04-19 18:56 | NUR ---
HAND-OFF: Report given to CHA Carias.
--- NOTE | 2019-04-19 19:00 | NUR ---
NURSE NOTES: Received patient in bed. AAO x 3, Room air. Pt is on fluid restriction PO 800cc/24h started 11am on 04/18. IV site intact and patent. No pain and no acute distress noted at this time. Bed locked, lowest position, alarm on, call light within reach. Will continue to monitor.
[2019-04-19 20:00] VITALS: BP 147/77
[2019-04-20] VITALS: BP 128/67
[2019-04-20 04:00] VITALS: BP 138/66
[2019-04-20] MEDS: NovoLOG Insulin Flexpen SUBQ SCH ×4 (05:57→20:52)
--- NOTE | 2019-04-20 06:27 | NUR ---
NURSE NOTES: Notified Dr. Schofield that blood sugar was 42 @ 0545. Dextrose 50cc given as ordered. After 15min recheck BS was 173. Addendum: 04/20/19 at 0747 by RONALD WITT RN RN Per Dr. Schofield, not to give Glucotrol 10mg scheduled @0630.
[2019-04-20] MEDS: GlipiZIDE 5mg tab ORAL SCH ×2 (06:30→17:22)
[2019-04-20 07:34] LABS: ALANINE AMINOTRANSFERASE 7 U/L (12-78); ALBUMIN 2.4 G/DL (3.4-5.0); ALBUMIN/GLOBULIN RATIO 0.7 (1.0-2.7); ALKALINE PHOSPHATASE 47 U/L (46-116); ANION GAP 8 mmol/L (5-15); ASPARTATE AMINO TRANSFERASE 19 U/L (15-37); BILIRUBIN,TOTAL 0.2 MG/DL (0.2-1.0); BLOOD UREA NITROGEN 22 mg/dL (7-18); CALCIUM 8.8 MG/DL (8.5-10.1); CARBON DIOXIDE 24 MMOL/L (21-32); CHLORIDE 100 MMOL/L (98-107); CREATININE 1.1 MG/DL (0.55-1.30); PHOSPHORUS 3.7 MG/DL (2.5-4.9); POTASSIUM 4.3 MMOL/L (3.5-5.1); SODIUM 132 MMOL/L (136-145)
--- NOTE | 2019-04-20 07:47 | NUR ---
HAND-OFF: Report given to CHA Anthony.
--- NOTE | 2019-04-20 07:48 | NUR ---
NURSE NOTES: Received patient awake alert and oriented, sitting up comfortably in bed. IV site to right forearm 24 gauge, saline lock. Bed at lowest level with 3 side rails up. Call light within reach. In no apparent distress at this time. Will continue to monitor.
[2019-04-20 08:00] VITALS: BP 132/69
[2019-04-20] MEDS: FLUoxetine 10mg cap ORAL SCH (08:24)
[2019-04-20] MEDS: Depakote ER 500mg tab ORAL SCH (08:24)
[2019-04-20] MEDS: Lisinopril 10mg tab ORAL SCH (08:25)
[2019-04-20] MEDS: Heparin 5000 units/ml inj SUBQ SCH ×2 (08:25→20:54)
--- NOTE | 2019-04-20 10:01 | Nephrology Progress Note ---
Assessment/Plan Problem List: (1) Hyponatremia Assessment: mixed picture (2) Diabetes mellitus (3) Psychosis (4) Anemia Assessment HypoNatremia. Etiology: Depletional / SIADH DM , OOC , elevated A1c Mild Anemia HypoAlbuminemia Plan on Synthroid UOs SOs TSH elevated Uric Acid Low 3% saline trial prn Urine spot Na high per orders Subjective ROS Limited/Unobtainable: No Constitutional: Reports: malaise, weakness Objective Objective Last 24 Hour Vital Signs Date Time Temp Pulse Resp B/P (MAP) Pulse Ox O2 Delivery O2 Flow Rate FiO2 04/20/19 09:00 Room Air 04/20/19 08:25 138/66 04/20/19 08:00 97.1 58 18 132/69 (90) 97 04/20/19 04:00 97.5 56 18 138/66 (90) 97 04/20/19 00:00 97.5 71 18 128/67 (87) 96 04/19/19 21:00 Room Air 04/19/19 20:00 98.8 72 18 147/77 (100) 97 04/19/19 16:00 98.6 79 20 151/78 (102) 98 04/19/19 12:00 98.1 72 18 139/78 (98) 95 Intake and Output 04/19/19 04/20/19 19:00 07:00 Intake Total 720 ml 120 ml Balance 720 ml 120 ml Intake Oral 720 ml 120 ml # Voids 5 2 Laboratory Tests 04/20/19 05:15: Sodium Level 132L, Potassium Level 4.3, Chloride Level 100, Carbon Dioxide Level 24, Anion Gap 8, Blood Urea Nitrogen 22H, Creatinine 1.1, Estimat Glomerular Filtration Rate 50.2, Glucose Level 46L, Osmolality 281L, Uric Acid 4.3, Calcium Level 8.8, Phosphorus Level 3.7, Magnesium Level 2.4, Total Bilirubin 0.2, Aspartate Amino Transf (AST/SGOT) 19, Alanine Aminotransferase ( ALT/SGPT) 7L, Alkaline Phosphatase 47, Total Protein 5.9L, Albumin 2.4L, Globulin 3.5, Albumin/Globulin Ratio 0.7L Height (Feet): 5 Height (Inches): 0.00 Weight (Pounds): 152 General Appearance: no apparent distress Cardiovascular: normal rate Respiratory/Chest: decreased breath sounds Abdomen: absent bowel sounds Objective no change Fouladian,Alfonso MD Apr 20, 2019 10:01
[2019-04-20 12:00] VITALS: BP 155/81
--- NOTE | 2019-04-20 12:55 | NUR ---
NURSE NOTES: Received patient awake alert and oriented, sitting up comfortably in bed. IV at left forearm, 24 gauge and right forearm, 24 gauge, saline lock. Bed at lowest level with 3 side rails up. Call light within reach. In no apparent distress at this time. Will continue to monitor. Addendum: 04/20/19 at 1607 by RANI HERNANDEZ RN please disregard. wrong patient.
--- NOTE | 2019-04-20 14:03 | NUR ---
*-* INSURANCE *-* ALL CLINICALS AND REVIEWS HAVE BEEN FAXED TO: [employer]: ROSS PH#[phone] FAX#[phone] REVIEWS/CLINICALS
--- NOTE | 2019-04-20 14:05 | Pulmonology Progress Note ---
Assessment/Plan Problems: (1) Acute encephalopathy (2) Hyponatremia (3) Weakness (4) Psychosis (5) Episode of generalized weakness (6) Diabetes mellitus Assessment/Plan all noted feeling better still very weak sliding scale pt/ot dc planning in progress Subjective ROS Limited/Unobtainable: No Constitutional: Reports: no symptoms HEENT: Repors: no symptoms Allergies: Coded Allergies: No Known Allergies (Unverified , 04/15/19) Objective Last 24 Hour Vital Signs Date Time Temp Pulse Resp B/P (MAP) Pulse Ox O2 Delivery O2 Flow Rate FiO2 04/20/19 09:00 Room Air 04/20/19 08:25 138/66 04/20/19 08:00 97.1 58 18 132/69 (90) 97 04/20/19 04:00 97.5 56 18 138/66 (90) 97 04/20/19 00:00 97.5 71 18 128/67 (87) 96 04/19/19 21:00 Room Air 04/19/19 20:00 98.8 72 18 147/77 (100) 97 04/19/19 16:00 98.6 79 20 151/78 (102) 98 Intake and Output 04/19/19 04/20/19 19:00 07:00 Intake Total 720 ml 120 ml Balance 720 ml 120 ml Intake Oral 720 ml 120 ml # Voids 5 2 General Appearance: WD/WN HEENT: normocephalic, anicteric Respiratory/Chest: chest wall non-tender, lungs clear Breasts: no masses Cardiovascular: normal rate Abdomen: normal bowel sounds, no organomegaly Genitourinary: normal external genitalia Extremities: no cyanosis Skin: no rash Laboratory Tests 04/20/19 05:15: Sodium Level 132L, Potassium Level 4.3, Chloride Level 100, Carbon Dioxide Level 24, Anion Gap 8, Blood Urea Nitrogen 22H, Creatinine 1.1, Estimat Glomerular Filtration Rate 50.2, Glucose Level 46L, Osmolality 281L, Uric Acid 4.3, Calcium Level 8.8, Phosphorus Level 3.7, Magnesium Level 2.4, Total Bilirubin 0.2, Aspartate Amino Transf (AST/SGOT) 19, Alanine Aminotransferase ( ALT/SGPT) 7L, Alkaline Phosphatase 47, Total Protein 5.9L, Albumin 2.4L, Globulin 3.5, Albumin/Globulin Ratio 0.7L Current Medications Medications (Trade) Dose Ordered Sig/Ingrid Route PRN Reason Start Time Stop Time Status Last Admin Dose Admin Acetaminophen (Tylenol) 650 mg Q6H PRN ORAL Mild Pain/Temp > 100.5 04/16/19 07:15 05/16/19 07:14 Atorvastatin Calcium (Lipitor) 10 mg BEDTIME ORAL 04/16/19 21:00 05/16/19 20:59 04/19/19 20:24 Dextrose (Dextrose 50%) 25 ml Q30M PRN IV Hypoglycemia 04/16/19 07:15 05/16/19 07:14 Dextrose (Dextrose 50%) 50 ml Q30M PRN IV Hypoglycemia 04/16/19 07:15 05/16/19 07:14 04/20/19 05:52 Divalproex Sodium (Depakote ER) 500 mg DAILY ORAL 04/16/19 09:00 05/16/19 08:59 04/20/19 08:24 Divalproex Sodium (Depakote) 750 mg QHS ORAL 04/16/19 21:00 05/16/19 20:59 04/19/19 20:23 Famotidine (Pepcid) 20 mg BID ORAL 04/19/19 18:00 05/16/19 20:59 04/20/19 08:24 Fluoxetine HCl (PROzac) 10 mg DAILY ORAL 04/16/19 09:00 05/16/19 08:59 04/20/19 08:24 Glipizide (Glucotrol) 10 mg BIAC ORAL 04/16/19 16:30 05/16/19 16:29 04/19/19 16:44 Heparin Sodium (Porcine) (Heparin 5000 units/ml) 5,000 units EVERY 12 HOURS SUBQ 04/16/19 09:00 05/16/19 08:59 Hydralazine HCl (Apresoline) 25 mg Q4H PRN ORAL SBP > 160mmHg 04/17/19 10:07 05/17/19 10:06 Insulin Aspart (NovoLOG) BEFORE MEALS AND HS SUBQ 04/16/19 11:30 05/16/19 11:29 04/20/19 13:25 Levothyroxine Sodium (Synthroid) 50 mcg DAILY@0630 ORAL 04/18/19 06:30 05/18/19 06:29 04/20/19 05:52 Lisinopril (Zestril) 10 mg DAILY ORAL 04/16/19 09:00 05/16/19 08:59 04/20/19 08:25 Ondansetron HCl (Zofran) 4 mg Q4H PRN IVP Nausea & Vomiting 04/16/19 07:15 05/16/19 07:14 Quetiapine Fumarate (SEROquel) 100 mg QHS ORAL 04/16/19 21:00 05/16/19 20:59 04/19/19 20:24 Theresa Silveira MD Apr 20, 2019 14:05
[2019-04-20 16:00] VITALS: BP 145/86
--- NOTE | 2019-04-20 16:56 | Internal Med Progress Note ---
Subjective Date of Service: Apr 20, 2019 Physician Name Bautista Miranda Attending Physician Nelson Schofield MD Current Medications Medications (Trade) Dose Ordered Sig/Ingrid Route PRN Reason Start Time Stop Time Status Last Admin Dose Admin Acetaminophen (Tylenol) 650 mg Q6H PRN ORAL Mild Pain/Temp > 100.5 04/16/19 07:15 05/16/19 07:14 Atorvastatin Calcium (Lipitor) 10 mg BEDTIME ORAL 04/16/19 21:00 05/16/19 20:59 04/19/19 20:24 Dextrose (Dextrose 50%) 25 ml Q30M PRN IV Hypoglycemia 04/16/19 07:15 05/16/19 07:14 Dextrose (Dextrose 50%) 50 ml Q30M PRN IV Hypoglycemia 04/16/19 07:15 05/16/19 07:14 04/20/19 05:52 Divalproex Sodium (Depakote ER) 500 mg DAILY ORAL 04/16/19 09:00 05/16/19 08:59 04/20/19 08:24 Divalproex Sodium (Depakote) 750 mg QHS ORAL 04/16/19 21:00 05/16/19 20:59 04/19/19 20:23 Famotidine (Pepcid) 20 mg BID ORAL 04/19/19 18:00 05/16/19 20:59 04/20/19 08:24 Fluoxetine HCl (PROzac) 10 mg DAILY ORAL 04/16/19 09:00 05/16/19 08:59 04/20/19 08:24 Glipizide (Glucotrol) 10 mg BIAC ORAL 04/16/19 16:30 05/16/19 16:29 04/19/19 16:44 Heparin Sodium (Porcine) (Heparin 5000 units/ml) 5,000 units EVERY 12 HOURS SUBQ 04/16/19 09:00 05/16/19 08:59 Hydralazine HCl (Apresoline) 25 mg Q4H PRN ORAL SBP > 160mmHg 04/17/19 10:07 05/17/19 10:06 Insulin Aspart (NovoLOG) BEFORE MEALS AND HS SUBQ 04/16/19 11:30 05/16/19 11:29 04/20/19 13:25 Levothyroxine Sodium (Synthroid) 50 mcg DAILY@0630 ORAL 04/18/19 06:30 05/18/19 06:29 04/20/19 05:52 Lisinopril (Zestril) 10 mg DAILY ORAL 04/16/19 09:00 05/16/19 08:59 04/20/19 08:25 Ondansetron HCl (Zofran) 4 mg Q4H PRN IVP Nausea & Vomiting 04/16/19 07:15 05/16/19 07:14 Quetiapine Fumarate (SEROquel) 100 mg QHS ORAL 04/16/19 21:00 05/16/19 20:59 04/19/19 20:24 Allergies: Coded Allergies: No Known Allergies (Unverified , 04/15/19) ROS Limited/Unobtainable: No Constitutional: Reports: no symptoms HEENT: Reports: no symptoms Cardiovascular: Reports: no symptoms Respiratory: Reports: no symptoms Gastrointestinal/Abdominal: Reports: no symptoms Genitourinary: Reports: no symptoms Neurologic/Psychiatric: Reports: no symptoms Subjective 64 YO F admitted with vertigo and ataxia. Now hyponatremia. Cover for Int Med -Dr Schofield Objective Last Vital Signs Date Time Temp Pulse Resp B/P (MAP) Pulse Ox O2 Delivery O2 Flow Rate FiO2 04/20/19 09:00 Room Air 04/20/19 08:25 138/66 04/20/19 08:00 97.1 58 18 97 Laboratory Tests Test 04/20/19 05:15 Sodium Level 132 MMOL/L (136-145) L Potassium Level 4.3 MMOL/L (3.5-5.1) Chloride Level 100 MMOL/L (98-107) Carbon Dioxide Level 24 MMOL/L (21-32) Anion Gap 8 mmol/L (5-15) Blood Urea Nitrogen 22 mg/dL (7-18) H Creatinine 1.1 MG/DL (0.55-1.30) Estimat Glomerular Filtration Rate 50.2 mL/min (>60) Glucose Level 46 MG/DL (74-106) L Osmolality 281 mOsm/kg (297-317) L Uric Acid 4.3 MG/DL (2.6-7.2) Calcium Level 8.8 MG/DL (8.5-10.1) Phosphorus Level 3.7 MG/DL (2.5-4.9) Magnesium Level 2.4 MG/DL (1.8-2.4) Total Bilirubin 0.2 MG/DL (0.2-1.0) Aspartate Amino Transf (AST/SGOT) 19 U/L (15-37) Alanine Aminotransferase (ALT/SGPT) 7 U/L (12-78) L Alkaline Phosphatase 47 U/L (46-116) Total Protein 5.9 G/DL (6.4-8.2) L Albumin 2.4 G/DL (3.4-5.0) L Globulin 3.5 g/dL Albumin/Globulin Ratio 0.7 (1.0-2.7) L Intake and Output 04/19/19 04/20/19 19:00 07:00 Intake Total 720 ml 120 ml Balance 720 ml 120 ml Intake Oral 720 ml 120 ml # Voids 5 2 Objective PHYSICAL EXAMINATION: GENERAL: The patient is awake and responsive, in no acute distress. HEAD AND NECK: Pupils are reactive to light. Extraocular movements intact. NECK: Supple. No JVD. LUNGS: Good air entry. No wheezing or rales. HEART: Reveals S1, S2. Regular rhythm. No gallop. ABDOMEN: Soft, nondistended, and nontender. Morbidly obese. EXTREMITIES: No cyanosis, clubbing, or edema. NEUROLOGIC: Cranial nerves II through XII grossly intact. Motor is 5+ in all extremities. Gait is ataxic. RECTAL/GENITOURINARY: Refused and deferred. PSYCHIATRIC: Mood and affect is intact. Assessment/Plan Assessment/Plan ASSESSMENT: 1. Vertigo/Ataxia possibly due to the severe hyponatremia. 2. Dehydration. 3. Hyponatremia, possible due to dehydration in conjunction with SIADH. 4. Hypertension. 5. Diabetes type 2. 6. GERD. 7. Depression. 8. History of right frontal craniotomy. PLAN: 1. Admit the patient to medical floor. 2. Start the patient on NS. 3. Monitor laboratory closely. 4. Follow up with the Nephrology consultation as well as Neurology if need to. 5. Code status Full Code. 6. DVT prophylaxis with heparin subcutaneous. 7. Discharge planning-Rehab on Bautista Ramon MD Apr 20, 2019 16:56
--- NOTE | 2019-04-20 19:37 | NUR ---
HAND-OFF: Report given to CHA Carias.
--- NOTE | 2019-04-20 19:51 | NUR ---
NURSE NOTES: Received patient in bed. AAO x 4. On room air. No pain and no acute distress noted at this time. IV sites intact and patent. Bed lowest position, locked, alarm on, side rails up x 2, call light within reach. Will continue to monitor.
[2019-04-20 20:00] VITALS: BP 161/90
--- NOTE | 2019-04-20 22:39 | NUR ---
NURSE NOTES: Pt c/o gastric acid pain and called Dr. Schofield. Received order Tums 500mg po q4 prn gastric acid
[2019-04-20] MEDS: Tums 500mg ORAL PRN (23:32)
[2019-04-21] VITALS: BP 129/72
[2019-04-21 04:00] VITALS: BP 106/51
[2019-04-21] MEDS: GlipiZIDE 5mg tab ORAL SCH ×2 (05:40→17:30)
[2019-04-21] MEDS: NovoLOG Insulin Flexpen SUBQ SCH ×4 (06:30→20:49)
--- NOTE | 2019-04-21 07:30 | NUR ---
NURSE NOTES: Report received from [facility]A Carias. Patient awake having breakfast. AOx4. In RA. IV running TKO. Denies any pain or SOB. Bed on lowest position, side rails upx2, brakes engaged. Call light within easy reach.
[2019-04-21 08:00] VITALS: BP 147/85
--- NOTE | 2019-04-21 08:07 | NUR ---
HAND-OFF: Report given to CHA Metcalf.
[2019-04-21] MEDS: Heparin 5000 units/ml inj SUBQ SCH ×2 (09:00→20:40)
--- NOTE | 2019-04-21 09:05 | NUR ---
PT EVALUATION NOTE Patient seen for initial evaluation, see complete evaluation for details. Patient presents with generalized weakness and impaired balance which affects patient's ability to perform transfers and ambulation. Patient provided with FWW for ambulation with improved gait balance requiring CGA for safety due to unsteady gait. Patient ambulates with decreased bilateral step length and narrow base of support with increased risk for falls. Patient will benefit from skilled inpatient PT intervention to address strength, balance, safety awareness and functional mobility. Recommend discharge to ARU/SNF for further rehab once medically cleared by MD. Also recommend FWW for safe transfers and ambulation. Addendum: 04/21/19 at 1233 by MICHELLE OLIVARES PT Amended: Links added.
[2019-04-21] MEDS: FLUoxetine 10mg cap ORAL SCH (09:19)
[2019-04-21] MEDS: Lisinopril 10mg tab ORAL SCH (09:19)
[2019-04-21] MEDS: Depakote ER 500mg tab ORAL SCH (09:19)
[2019-04-21 12:00] VITALS: BP 140/79
--- NOTE | 2019-04-21 12:18 | Nephrology Progress Note ---
Assessment/Plan Problem List: (1) Hyponatremia Assessment: mixed picture (2) Diabetes mellitus (3) Psychosis (4) Anemia Assessment HypoNatremia. Etiology: Depletional / SIADH DM , OOC , elevated A1c Mild Anemia HypoAlbuminemia Plan no labs today on Synthroid UOs SOs TSH elevated Uric Acid Low 3% saline trial prn Urine spot Na high per orders Subjective ROS Limited/Unobtainable: No Constitutional: Reports: malaise Objective Objective Last 24 Hour Vital Signs Date Time Temp Pulse Resp B/P (MAP) Pulse Ox O2 Delivery O2 Flow Rate FiO2 04/21/19 09:19 147/85 04/21/19 08:00 97.8 80 18 147/85 (105) 97 04/21/19 04:00 98.0 62 14 106/51 (69) 96 04/21/19 00:00 98.6 97 14 129/72 (91) 96 04/20/19 21:00 Room Air 04/20/19 20:00 97.7 74 15 161/90 (113) 98 04/20/19 16:00 98.3 73 18 145/86 (105) 97 Intake and Output 04/20/19 04/21/19 19:00 07:00 Intake Total 820 ml 240 ml Balance 820 ml 240 ml Intake Oral 820 ml 240 ml # Voids 5 2 # Bowel Movements 2 Height (Feet): 5 Height (Inches): 0.00 Weight (Pounds): 151 General Appearance: no apparent distress Objective no change Alfonso Baez MD Apr 21, 2019 12:18
--- NOTE | 2019-04-21 13:08 | Internal Med Progress Note ---
Subjective Date of Service: Apr 21, 2019 Physician Name Bautista Miranda Attending Physician Nelson Schofield MD Current Medications Medications (Trade) Dose Ordered Sig/Ingrid Route PRN Reason Start Time Stop Time Status Last Admin Dose Admin Acetaminophen (Tylenol) 650 mg Q6H PRN ORAL Mild Pain/Temp > 100.5 04/16/19 07:15 05/16/19 07:14 Atorvastatin Calcium (Lipitor) 10 mg BEDTIME ORAL 04/16/19 21:00 05/16/19 20:59 04/20/19 20:49 Calcium Carbonate (Tums) 500 mg Q4H PRN ORAL Abdominal cramps 04/20/19 22:45 05/20/19 22:44 04/20/19 23:32 Dextrose (Dextrose 50%) 25 ml Q30M PRN IV Hypoglycemia 04/16/19 07:15 05/16/19 07:14 Dextrose (Dextrose 50%) 50 ml Q30M PRN IV Hypoglycemia 04/16/19 07:15 05/16/19 07:14 04/20/19 05:52 Divalproex Sodium (Depakote ER) 500 mg DAILY ORAL 04/16/19 09:00 05/16/19 08:59 04/21/19 09:19 Divalproex Sodium (Depakote) 750 mg QHS ORAL 04/16/19 21:00 05/16/19 20:59 04/20/19 20:49 Famotidine (Pepcid) 20 mg BID ORAL 04/19/19 18:00 05/16/19 20:59 04/21/19 09:19 Fluoxetine HCl (PROzac) 10 mg DAILY ORAL 04/16/19 09:00 05/16/19 08:59 04/21/19 09:19 Glipizide (Glucotrol) 10 mg BIAC ORAL 04/16/19 16:30 05/16/19 16:29 04/20/19 17:22 Heparin Sodium (Porcine) (Heparin 5000 units/ml) 5,000 units EVERY 12 HOURS SUBQ 04/16/19 09:00 05/16/19 08:59 Hydralazine HCl (Apresoline) 25 mg Q4H PRN ORAL SBP > 160mmHg 04/17/19 10:07 05/17/19 10:06 Insulin Aspart (NovoLOG) BEFORE MEALS AND HS SUBQ 04/16/19 11:30 05/16/19 11:29 04/21/19 12:09 Levothyroxine Sodium (Synthroid) 50 mcg DAILY@0630 ORAL 04/18/19 06:30 05/18/19 06:29 04/21/19 05:42 Lisinopril (Zestril) 10 mg DAILY ORAL 04/16/19 09:00 05/16/19 08:59 04/21/19 09:19 Ondansetron HCl (Zofran) 4 mg Q4H PRN IVP Nausea & Vomiting 04/16/19 07:15 05/16/19 07:14 Quetiapine Fumarate (SEROquel) 100 mg QHS ORAL 04/16/19 21:00 05/16/19 20:59 04/20/19 20:49 Allergies: Coded Allergies: No Known Allergies (Unverified , 04/15/19) ROS Limited/Unobtainable: No Constitutional: Reports: no symptoms HEENT: Reports: no symptoms Cardiovascular: Reports: no symptoms Respiratory: Reports: no symptoms Gastrointestinal/Abdominal: Reports: no symptoms Genitourinary: Reports: no symptoms Neurologic/Psychiatric: Reports: no symptoms Subjective 64 YO F admitted with vertigo and ataxia. Now hyponatremia. Cover for Int [facility] -Dr Schofield Objective Last Vital Signs Date Time Temp Pulse Resp B/P (MAP) Pulse Ox O2 Delivery O2 Flow Rate FiO2 04/21/19 09:19 147/85 04/21/19 08:00 97.8 80 18 97 04/20/19 21:00 Room Air Intake and Output 04/20/19 04/21/19 19:00 07:00 Intake Total 820 ml 240 ml Balance 820 ml 240 ml Intake Oral 820 ml 240 ml # Voids 5 2 # Bowel Movements 2 Objective PHYSICAL EXAMINATION: GENERAL: The patient is awake and responsive, in no acute distress. HEAD AND NECK: Pupils are reactive to light. Extraocular movements intact. NECK: Supple. No JVD. LUNGS: Good air entry. No wheezing or rales. HEART: Reveals S1, S2. Regular rhythm. No gallop. ABDOMEN: Soft, nondistended, and nontender. Morbidly obese. EXTREMITIES: No cyanosis, clubbing, or edema. NEUROLOGIC: Cranial nerves II through XII grossly intact. Motor is 5+ in all extremities. Gait is ataxic. RECTAL/GENITOURINARY: Refused and deferred. PSYCHIATRIC: Mood and affect is intact. Assessment/Plan Assessment/Plan ASSESSMENT: 1. Vertigo/Ataxia possibly due to the severe hyponatremia. 2. Dehydration. 3. Hyponatremia, possible due to dehydration in conjunction with SIADH. 4. Hypertension. 5. Diabetes type 2. 6. GERD. 7. Depression. 8. History of right frontal craniotomy. PLAN: 1. Admit the patient to medical floor. 2. Start the patient on NS. 3. Monitor laboratory closely. 4. Follow up with the Nephrology consultation as well as Neurology if need to. 5. Code status Full Code. 6. DVT prophylaxis with heparin subcutaneous. 7. Discharge planning-Rehab on Bautista Ramon MD Apr 21, 2019 13:08
--- NOTE | 2019-04-21 13:56 | Pulmonology Progress Note ---
Assessment/Plan Problems: (1) Acute encephalopathy (2) Hyponatremia (3) Weakness (4) Psychosis (5) Episode of generalized weakness (6) Diabetes mellitus Assessment/Plan can't go to previous housing feeling better still very weak sliding scale pt/ot dc planning in progress, needs to go to long term Subjective ROS Limited/Unobtainable: No Constitutional: Reports: no symptoms HEENT: Repors: no symptoms Allergies: Coded Allergies: No Known Allergies (Unverified , 04/15/19) Objective Last 24 Hour Vital Signs Date Time Temp Pulse Resp B/P (MAP) Pulse Ox O2 Delivery O2 Flow Rate FiO2 04/21/19 09:19 147/85 04/21/19 08:00 97.8 80 18 147/85 (105) 97 04/21/19 04:00 98.0 62 14 106/51 (69) 96 04/21/19 00:00 98.6 97 14 129/72 (91) 96 04/20/19 21:00 Room Air 04/20/19 20:00 97.7 74 15 161/90 (113) 98 04/20/19 16:00 98.3 73 18 145/86 (105) 97 Intake and Output 04/20/19 04/21/19 19:00 07:00 Intake Total 820 ml 240 ml Balance 820 ml 240 ml Intake Oral 820 ml 240 ml # Voids 5 2 # Bowel Movements 2 General Appearance: WD/WN HEENT: normocephalic Respiratory/Chest: chest wall non-tender, normal breath sounds Cardiovascular: normal peripheral pulses, regular rhythm Abdomen: soft, non tender Skin: no lesions Current Medications Medications (Trade) Dose Ordered Sig/Ingrid Route PRN Reason Start Time Stop Time Status Last Admin Dose Admin Acetaminophen (Tylenol) 650 mg Q6H PRN ORAL Mild Pain/Temp > 100.5 04/16/19 07:15 05/16/19 07:14 Atorvastatin Calcium (Lipitor) 10 mg BEDTIME ORAL 04/16/19 21:00 05/16/19 20:59 04/20/19 20:49 Calcium Carbonate (Tums) 500 mg Q4H PRN ORAL Abdominal cramps 04/20/19 22:45 05/20/19 22:44 04/20/19 23:32 Dextrose (Dextrose 50%) 25 ml Q30M PRN IV Hypoglycemia 04/16/19 07:15 05/16/19 07:14 Dextrose (Dextrose 50%) 50 ml Q30M PRN IV Hypoglycemia 04/16/19 07:15 05/16/19 07:14 04/20/19 05:52 Divalproex Sodium (Depakote ER) 500 mg DAILY ORAL 04/16/19 09:00 05/16/19 08:59 04/21/19 09:19 Divalproex Sodium (Depakote) 750 mg QHS ORAL 04/16/19 21:00 05/16/19 20:59 04/20/19 20:49 Famotidine (Pepcid) 20 mg BID ORAL 04/19/19 18:00 05/16/19 20:59 04/21/19 09:19 Fluoxetine HCl (PROzac) 10 mg DAILY ORAL 04/16/19 09:00 05/16/19 08:59 04/21/19 09:19 Glipizide (Glucotrol) 10 mg BIAC ORAL 04/16/19 16:30 05/16/19 16:29 04/20/19 17:22 Heparin Sodium (Porcine) (Heparin 5000 units/ml) 5,000 units EVERY 12 HOURS SUBQ 04/16/19 09:00 05/16/19 08:59 Hydralazine HCl (Apresoline) 25 mg Q4H PRN ORAL SBP > 160mmHg 04/17/19 10:07 05/17/19 10:06 Insulin Aspart (NovoLOG) BEFORE MEALS AND HS SUBQ 04/16/19 11:30 05/16/19 11:29 04/21/19 12:09 Levothyroxine Sodium (Synthroid) 50 mcg DAILY@0630 ORAL 04/18/19 06:30 05/18/19 06:29 04/21/19 05:42 Lisinopril (Zestril) 10 mg DAILY ORAL 04/16/19 09:00 05/16/19 08:59 04/21/19 09:19 Ondansetron HCl (Zofran) 4 mg Q4H PRN IVP Nausea & Vomiting 04/16/19 07:15 05/16/19 07:14 Quetiapine Fumarate (SEROquel) 100 mg QHS ORAL 04/16/19 21:00 05/16/19 20:59 04/20/19 20:49 Theresa Silveira MD Apr 21, 2019 13:56
--- NOTE | 2019-04-21 14:00 | NUR ---
RD ASSESSMENT & RECOMMENDATIONS SEE CARE ACTIVITY FOR COMPLETE ASSESSMENT DAILY ESTIMATED NEEDS: Needs based on DM 51kg adj 25-30 kcals/kg [id number] total kcals 1-1.5 g protein/kg 51-77 g total protein Fluid per MD 800ml/24 hrs per MD NUTRITION DIAGNOSIS: Altered nutrition related lab values r/t diabetes and clinical status as evidenced by A1C 6.7 w/ episodes of hypoglycemia, low Na (124-> 132). CURRENT DIET: CCHO MED PO DIET RECOMMENDATIONS: CCHO LOW + 1 Carb snack in b/w all meals ADDITIONAL RECOMMENDATIONS: * 2 carb HS snack to prevent morning hypoglycemia * liberalize fluid restriction as able * Increase niss- currently @meals + HS Rec checks at night
--- NOTE | 2019-04-21 15:17 | NUR ---
*-* INSURANCE *-* ALL CLINICALS AND REVIEWS HAVE BEEN FAXED TO: MAKAYLA SHEET MANAGER: ROSS PH#[phone] FAX#[phone] REVIEWS/CLINICALS
--- NOTE | 2019-04-21 15:54 | NUR ---
DISCHARGE PLANNING Discharge order noted Patient has been referred to insurance professional; Addison. PHOEBE called to follow-up for placement, no answer voicemail left. #[phone]
[2019-04-21 16:00] VITALS: BP 137/88
[2019-04-21] MEDS: Docusate 100mg cap ORAL SCH (17:30)
--- NOTE | 2019-04-21 18:46 | NUR ---
CASE MANAGEMENT: REVIEW SI: ACUTE ENCEPHALOPATHY . DM T 97.2 HR 76 RR 18 BP 106/51 SAT 96% ROOM AIR BEDSIDE GLUCOSE 157 IS: NOVOLOG SUBQ AC+HS HEPARIN SUBQ Q12HR SYNTHROID PO QD MED/SURG STATUS DCP: PATIENT IS FROM [facility]
--- NOTE | 2019-04-21 19:45 | NUR ---
HAND-OFF: Report given to [facility] Medrano. Patient in stable condition.
--- NOTE | 2019-04-21 19:56 | NUR ---
NURSE NOTES: Received patient in bed, awake, alert, oriented x4, able to verbalize her needs, no acute distress noted, VSS, afebrile, IV site is clean dry and intact. Call light is within reach, bed is in low position, locked and alarm is on. Will continue to monitor for safety and comfort.
[2019-04-21 20:00] VITALS: BP 146/80
[2019-04-21] MEDS: Miralax 17gm pkt ORAL SCH (20:33)
[2019-04-21] MEDS: Tums 500mg ORAL PRN (20:39)
[2019-04-22] VITALS: BP 100/61
[2019-04-22 04:00] VITALS: BP 135/71
[2019-04-22] MEDS: GlipiZIDE 5mg tab ORAL SCH (05:57)
[2019-04-22] MEDS: NovoLOG Insulin Flexpen SUBQ SCH ×4 (05:57→20:25)
--- NOTE | 2019-04-22 06:34 | NUR ---
NURSE NOTES: Patients blood sugar at 6 am is 55, administered Dextrose solution as ordered, rechecked blood sugar at 0630 -188. CN was made aware.
--- NOTE | 2019-04-22 06:54 | NUR ---
HAND-OFF: Report given to Gay EUBANKS.
[2019-04-22 08:00] VITALS: BP 146/73
--- NOTE | 2019-04-22 08:17 | NUR ---
pt in bed resting with eyes close but talking. Call light is within reach. Bed is locked and in lowest position. Will continue to monitor and follow plan of care. Pt awaiting for placement at [facility].
[2019-04-22] MEDS: Heparin 5000 units/ml inj SUBQ SCH ×2 (09:00→20:21)
[2019-04-22 09:28] LABS: ALANINE AMINOTRANSFERASE 12 U/L (12-78); ALBUMIN 2.7 G/DL (3.4-5.0); ALBUMIN/GLOBULIN RATIO 0.7 (1.0-2.7); ALKALINE PHOSPHATASE 50 U/L (46-116); ANION GAP 5 mmol/L (5-15); ASPARTATE AMINO TRANSFERASE 14 U/L (15-37); BILIRUBIN,TOTAL 0.4 MG/DL (0.2-1.0); BLOOD UREA NITROGEN 28 mg/dL (7-18); CALCIUM 9.2 MG/DL (8.5-10.1); CARBON DIOXIDE 28 MMOL/L (21-32); CHLORIDE 96 MMOL/L (98-107); CREATININE 1.3 MG/DL (0.55-1.30); PHOSPHORUS 3.6 MG/DL (2.5-4.9); POTASSIUM 4.6 MMOL/L (3.5-5.1); SODIUM 128 MMOL/L (136-145)
[2019-04-22] MEDS: Docusate 100mg cap ORAL SCH ×3 (09:56→18:26)
[2019-04-22] MEDS: FLUoxetine 10mg cap ORAL SCH (09:58)
[2019-04-22] MEDS: Depakote ER 500mg tab ORAL SCH (09:58)
[2019-04-22] MEDS: Sennosides 8.6mg tab ORAL SCH (09:58)
[2019-04-22] MEDS: Lisinopril 10mg tab ORAL SCH (09:58)
[2019-04-22 12:00] VITALS: BP 128/74
--- NOTE | 2019-04-22 12:22 | NUR ---
CHARGE NURSE NOTE: Mag.1.6, Na-128, Chl.96. No IV fluids. notified.
--- NOTE | 2019-04-22 13:37 | Pulmonology Progress Note ---
Assessment/Plan Problems: (1) Acute encephalopathy (2) Hyponatremia (3) Weakness (4) Psychosis (5) Episode of generalized weakness (6) Diabetes mellitus Assessment/Plan can't go to previous housing feeling better still very weak sliding scale pt/ot dc planning in progress, needs to go to skilled nursing Subjective ROS Limited/Unobtainable: No Constitutional: Reports: no symptoms HEENT: Repors: no symptoms Respiratory: Reports: no symptoms Allergies: Coded Allergies: No Known Allergies (Unverified , 04/15/19) Objective Last 24 Hour Vital Signs Date Time Temp Pulse Resp B/P (MAP) Pulse Ox O2 Delivery O2 Flow Rate FiO2 04/22/19 09:58 146/73 04/22/19 08:00 98.1 63 18 146/73 (97) 98 04/22/19 04:00 97.4 63 16 135/71 (92) 04/22/19 00:00 97.2 85 14 100/61 (74) 04/21/19 21:20 Room Air 04/21/19 20:00 97.7 76 14 146/80 (102) 04/21/19 16:00 97.2 76 18 137/88 (104) 97 Intake and Output 04/21/19 04/22/19 19:00 07:00 Intake Total 1120 ml Balance 1120 ml Intake Oral 1120 ml # Voids 5 General Appearance: WD/WN HEENT: atraumatic, anicteric Respiratory/Chest: chest wall non-tender, lungs clear Breasts: no masses Cardiovascular: normal peripheral pulses Abdomen: normal bowel sounds, soft, non tender Genitourinary: normal external genitalia Skin: no rash Laboratory Tests 04/22/19 08:20: Sodium Level 128L, Potassium Level 4.6, Chloride Level 96L, Carbon Dioxide Level 28, Anion Gap 5, Blood Urea Nitrogen 28H, Creatinine 1.3, Estimat Glomerular Filtration Rate 41.4, Glucose Level 108H, Uric Acid 5.2, Calcium Level 9.2, Phosphorus Level 3.6, Magnesium Level 1.6L, Total Bilirubin 0.4, Aspartate Amino Transf (AST/SGOT) 14L, Alanine Aminotransferase (ALT/SGPT) 12, Alkaline Phosphatase 50, Total Protein 6.5, Albumin 2.7L, Globulin 3.8, Albumin/ Globulin Ratio 0.7L Current Medications Medications (Trade) Dose Ordered Sig/Ingrid Route PRN Reason Start Time Stop Time Status Last Admin Dose Admin Acetaminophen (Tylenol) 650 mg Q6H PRN ORAL Mild Pain/Temp > 100.5 04/16/19 07:15 05/16/19 07:14 Atorvastatin Calcium (Lipitor) 10 mg BEDTIME ORAL 04/16/19 21:00 05/16/19 20:59 04/21/19 20:39 Calcium Carbonate (Tums) 500 mg Q4H PRN ORAL Abdominal cramps 04/20/19 22:45 05/20/19 22:44 04/21/19 20:39 Dextrose (Dextrose 50%) 25 ml Q30M PRN IV Hypoglycemia 04/16/19 07:15 05/16/19 07:14 Dextrose (Dextrose 50%) 50 ml Q30M PRN IV Hypoglycemia 04/16/19 07:15 05/16/19 07:14 04/22/19 06:02 Divalproex Sodium (Depakote ER) 500 mg DAILY ORAL 04/16/19 09:00 05/16/19 08:59 04/22/19 09:58 Divalproex Sodium (Depakote) 750 mg QHS ORAL 04/16/19 21:00 05/16/19 20:59 04/21/19 20:40 Docusate Sodium (Colace) 100 mg THREE TIMES A DAY ORAL 04/21/19 18:00 05/21/19 17:59 04/22/19 12:50 Famotidine (Pepcid) 20 mg BID ORAL 04/19/19 18:00 05/16/19 20:59 04/22/19 09:58 Fluoxetine HCl (PROzac) 10 mg DAILY ORAL 04/16/19 09:00 05/16/19 08:59 04/22/19 09:58 Glipizide (Glucotrol) 10 mg BIAC ORAL 04/16/19 16:30 05/16/19 16:29 04/21/19 17:30 Heparin Sodium (Porcine) (Heparin 5000 units/ml) 5,000 units EVERY 12 HOURS SUBQ 04/16/19 09:00 05/16/19 08:59 Hydralazine HCl (Apresoline) 25 mg Q4H PRN ORAL SBP > 160mmHg 04/17/19 10:07 05/17/19 10:06 Insulin Aspart (NovoLOG) BEFORE MEALS AND HS SUBQ 04/16/19 11:30 05/16/19 11:29 04/21/19 17:27 Levothyroxine Sodium (Synthroid) 50 mcg DAILY@0630 ORAL 04/18/19 06:30 05/18/19 06:29 04/22/19 06:10 Lisinopril (Zestril) 10 mg DAILY ORAL 04/16/19 09:00 05/16/19 08:59 04/22/19 09:58 Mineral Oil (Fleet's Mineral Oil Enema) 133 ml EVERY OTHER DAY RECTAL 04/23/19 09:00 05/23/19 08:59 Ondansetron HCl (Zofran) 4 mg Q4H PRN IVP Nausea & Vomiting 04/16/19 07:15 05/16/19 07:14 Polyethylene Glycol (Miralax) 17 gm BEDTIME ORAL 04/21/19 21:00 05/21/19 20:59 Quetiapine Fumarate (SEROquel) 100 mg QHS ORAL 04/16/19 21:00 05/16/19 20:59 04/21/19 20:39 Sennosides (Senokot) 8.6 mg DAILY ORAL 04/22/19 09:00 05/22/19 08:59 04/22/19 09:58 Theresa Silveira MD Apr 22, 2019 13:37
--- NOTE | 2019-04-22 13:51 | NUR ---
Social Work This Sw met with patient who explains she has been living at a [facility], unable to provide name or address. Patient receives SSI $900-1100.00 (unable to recall the exact amount, stating she does not manage her own money, will SSI is automatically paid to her Board and [facility]. Patient expressing why she cannot return to her facility, while also complaining that she is unsure that she can manage the flight of steps (20 steps) at her Board and [facility]. Patient's SSI was paid for her room/board for April, will not have full SSI amount until beginning of next month.
--- NOTE | 2019-04-22 13:57 | Nephrology Progress Note ---
Assessment/Plan Problem List: (1) Hyponatremia Assessment: mixed picture (2) Diabetes mellitus (3) Psychosis (4) Anemia Assessment HypoNatremia. Etiology: Depletional / SIADH DM , OOC , elevated A1c Mild Anemia HypoAlbuminemia Plan on Synthroid UOs SOs TSH elevated Uric Acid Low 3% saline trial prn and Lasix Urine spot Na high per orders Subjective ROS Limited/Unobtainable: No Constitutional: Reports: malaise Objective Objective Last 24 Hour Vital Signs Date Time Temp Pulse Resp B/P (MAP) Pulse Ox O2 Delivery O2 Flow Rate FiO2 04/22/19 09:58 146/73 04/22/19 08:00 98.1 63 18 146/73 (97) 98 04/22/19 04:00 97.4 63 16 135/71 (92) 04/22/19 00:00 97.2 85 14 100/61 (74) 04/21/19 21:20 Room Air 04/21/19 20:00 97.7 76 14 146/80 (102) 04/21/19 16:00 97.2 76 18 137/88 (104) 97 Intake and Output 04/21/19 04/22/19 19:00 07:00 Intake Total 1120 ml Balance 1120 ml Intake Oral 1120 ml # Voids 5 Laboratory Tests 04/22/19 08:20: Sodium Level 128L, Potassium Level 4.6, Chloride Level 96L, Carbon Dioxide Level 28, Anion Gap 5, Blood Urea Nitrogen 28H, Creatinine 1.3, Estimat Glomerular Filtration Rate 41.4, Glucose Level 108H, Uric Acid 5.2, Calcium Level 9.2, Phosphorus Level 3.6, Magnesium Level 1.6L, Total Bilirubin 0.4, Aspartate Amino Transf (AST/SGOT) 14L, Alanine Aminotransferase (ALT/SGPT) 12, Alkaline Phosphatase 50, Total Protein 6.5, Albumin 2.7L, Globulin 3.8, Albumin/ Globulin Ratio 0.7L Height (Feet): 5 Height (Inches): 0.00 Weight (Pounds): 151 General Appearance: no apparent distress Objective no change Alfonso Baez MD Apr 22, 2019 13:57
--- NOTE | 2019-04-22 14:10 | NUR ---
NURSE NOTES: notiofied pharmacy L IV is infiltrated and R IV is burning where Mg started running so she asked to stop infusion. We have attempted to start IV twice but have not been successful. Nothing is running right now
[2019-04-22] MEDS ORDERED: NaCl 3% 500ml 500 ML IV ONE (15:00)
--- NOTE | 2019-04-22 15:06 | NUR ---
*-* INSURANCE *-* ALL CLINICALS AND REVIEWS HAVE BEEN FAXED TO: MAKAYLA DEEP FRYER ASSEMBLER: ROSS PH#[phone] FAX#[phone] REVIEWS/CLINICALS
--- NOTE | 2019-04-22 15:55 | NUR ---
NURSE NOTES: WE have been trying since 1400 to start IV we in med surge tried 3 time. ED tried a few times as well as RN child care supervisor tried to start an IV without any success. Notified Doctor Nestor about the pt not having IV access and if he wanted to change the route from IV to PO, he stated he just orders the medication and to contact primary, doctor Lester. Called doctor Raoul and left message to check if IV meds can be switched to PO or if he wants to have pt get a PICC line, waiting for his reply. Pt will be DC back to boarding care facility tomorrow.
[2019-04-22 16:00] VITALS: BP 134/81
--- NOTE | 2019-04-22 17:09 | NUR ---
RESIDENTIAL ADVISOR NOTES PLACEMENT FOUND BY INSURANCE COMPANY. PT ACCEPTED TO [facility]. ROOM 21 BED A.NURSE TO CALL REPORT TO [phone]. [facility] TO TRANSPORT PT. [facility] [address] [id number]
--- NOTE | 2019-04-22 19:30 | NUR ---
NURSE NOTES: Patient awake in bed, no complaints of pain at this time. For IV insertion. Instructed the use of call light. Call light and needs in reach. Bed in lowest position, lock engaged and alarm on. Will continue to monitor.
[2019-04-22 20:00] VITALS: BP 126/73
--- NOTE | 2019-04-22 20:06 | NUR ---
HAND-OFF: Report given to David/lynn. Pt in stable condition and needs IV access. Pt will be DC tomorrow.
[2019-04-22] MEDS: Miralax 17gm pkt ORAL SCH (20:21)
--- NOTE | 2019-04-22 23:29 | Internal Med Progress Note ---
Subjective Physician Name Nelson Schofield Attending Physician Nelson Schofield MD Current Medications Medications (Trade) Dose Ordered Sig/Ingrid Route PRN Reason Start Time Stop Time Status Last Admin Dose Admin Acetaminophen (Tylenol) 650 mg Q6H PRN ORAL Mild Pain/Temp > 100.5 04/16/19 07:15 05/16/19 07:14 Atorvastatin Calcium (Lipitor) 10 mg BEDTIME ORAL 04/16/19 21:00 05/16/19 20:59 04/22/19 20:21 Dextrose (Dextrose 50%) 25 ml Q30M PRN IV Hypoglycemia 04/16/19 07:15 05/16/19 07:14 Dextrose (Dextrose 50%) 50 ml Q30M PRN IV Hypoglycemia 04/16/19 07:15 05/16/19 07:14 04/22/19 06:02 Divalproex Sodium (Depakote ER) 500 mg DAILY ORAL 04/16/19 09:00 05/16/19 08:59 04/22/19 09:58 Divalproex Sodium (Depakote) 750 mg QHS ORAL 04/16/19 21:00 05/16/19 20:59 04/22/19 20:20 Docusate Sodium (Colace) 100 mg THREE TIMES A DAY ORAL 04/21/19 18:00 05/21/19 17:59 04/22/19 18:26 Fluoxetine HCl (PROzac) 10 mg DAILY ORAL 04/16/19 09:00 05/16/19 08:59 04/22/19 09:58 Furosemide (Lasix) 10 mg EVERY 8 HOURS IV 04/22/19 14:00 05/22/19 13:59 04/22/19 22:07 Heparin Sodium (Porcine) (Heparin 5000 units/ml) 5,000 units EVERY 12 HOURS SUBQ 04/16/19 09:00 05/16/19 08:59 Hydralazine HCl (Apresoline) 25 mg Q4H PRN ORAL SBP > 160mmHg 04/17/19 10:07 05/17/19 10:06 Insulin Aspart (NovoLOG) BEFORE MEALS AND HS SUBQ 04/16/19 11:30 05/16/19 11:29 04/22/19 20:25 Levothyroxine Sodium (Synthroid) 50 mcg DAILY@0630 ORAL 04/18/19 06:30 05/18/19 06:29 04/22/19 06:10 Lisinopril (Zestril) 10 mg DAILY ORAL 04/16/19 09:00 05/16/19 08:59 04/22/19 09:58 Magnesium Sulfate 100 ml @ 100 mls/hr Q1H IVPB 04/22/19 22:30 04/23/19 01:29 04/22/19 22:40 Mineral Oil (Fleet's Mineral Oil Enema) 133 ml EVERY OTHER DAY RECTAL 04/23/19 09:00 05/23/19 08:59 Ondansetron HCl (Zofran) 4 mg Q4H PRN IVP Nausea & Vomiting 04/16/19 07:15 05/16/19 07:14 Pantoprazole (Protonix) 40 mg EVERY 12 HOURS ORAL 04/23/19 21:00 05/22/19 20:59 Polyethylene Glycol (Miralax) 17 gm BEDTIME ORAL 04/21/19 21:00 05/21/19 20:59 Quetiapine Fumarate (SEROquel) 100 mg QHS ORAL 04/16/19 21:00 05/16/19 20:59 04/22/19 20:20 Sennosides (Senokot) 8.6 mg DAILY ORAL 04/22/19 09:00 05/22/19 08:59 04/22/19 09:58 Sodium Chloride 500 ml @ 30 mls/hr ONCE ONCE IV 04/22/19 15:00 04/23/19 07:39 04/22/19 22:08 Allergies: Coded Allergies: No Known Allergies (Unverified , 04/15/19) Subjective Awake, alert, responsive, denies any chest pain, denies any shortness of breath , complained about dizziness, sodium: 128 Objective Last Vital Signs Date Time Temp Pulse Resp B/P (MAP) Pulse Ox O2 Delivery O2 Flow Rate FiO2 04/22/19 21:00 Room Air 04/22/19 20:00 98.1 83 18 126/73 (90) 96 Laboratory Tests Test 04/22/19 08:20 Sodium Level 128 MMOL/L (136-145) L Potassium Level 4.6 MMOL/L (3.5-5.1) Chloride Level 96 MMOL/L (98-107) L Carbon Dioxide Level 28 MMOL/L (21-32) Anion Gap 5 mmol/L (5-15) Blood Urea Nitrogen 28 mg/dL (7-18) H Creatinine 1.3 MG/DL (0.55-1.30) Estimat Glomerular Filtration Rate 41.4 mL/min (>60) Glucose Level 108 MG/DL (74-106) H Uric Acid 5.2 MG/DL (2.6-7.2) Calcium Level 9.2 MG/DL (8.5-10.1) Phosphorus Level 3.6 MG/DL (2.5-4.9) Magnesium Level 1.6 MG/DL (1.8-2.4) L Total Bilirubin 0.4 MG/DL (0.2-1.0) Aspartate Amino Transf (AST/SGOT) 14 U/L (15-37) L Alanine Aminotransferase (ALT/SGPT) 12 U/L (12-78) Alkaline Phosphatase 50 U/L (46-116) Total Protein 6.5 G/DL (6.4-8.2) Albumin 2.7 G/DL (3.4-5.0) L Globulin 3.8 g/dL Albumin/Globulin Ratio 0.7 (1.0-2.7) L Intake and Output 04/21/19 04/22/19 19:00 07:00 Intake Total 1120 ml Balance 1120 ml Intake Oral 1120 ml # Voids 5 Objective General: No acute distress, awake and alert HEENT: NCAT, sclera anicteric, PERRL, EOMI. Neck: Supple, no significant jugular venous distention, Lungs: Good inspiratory effort, no accessory muscle use, clear to auscultation bilaterally, no Wheeze or Rales. Heart: Regular rate and rhythm, normal S1/S2, no murmur. Abdomen: soft, nontender, nondistended. Normoactive bowel sounds, obesity. / Rectal: Refused and deferred. Extremities: No Cyanosis , clubbing or edema. Neuro: A&O x 3, Able to move all extremities Skin: warm, no rashes or lesions Psych: Normal mood and affect Assessment/Plan Assessment/Plan 1. Vertigo/Ataxia possibly due to the severe hyponatremia. 2. Dehydration. 3. 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 4. Hypertension. 5. Diabetes type 2. 6. GERD. 7. Depression. 8. History of right frontal craniotomy. PLAN: 1. In medical floor. 2. PT Mobility. 3. Monitor laboratory closely. 4. Follow up with the Nephrology consultation as well as Neurology if need to. 5. Code status Full Code. 6. DVT prophylaxis with heparin subcutaneous. 7. Discharge planning- Nelson Schofield MD Apr 22, 2019 23:29
[2019-04-23] VITALS (8 sets, daily range): BP systolic 87–158; BP diastolic 44–113
--- NOTE | 2019-04-23 01:00 | NUR ---
NURSE NOTES: Obtained IV access on both arms. NS 500ml bolus continued. Magnesium bags infused as ordered. Hypertonic solution started.
[2019-04-23] MEDS: NovoLOG Insulin Flexpen SUBQ SCH ×3 (06:10→16:57)
--- NOTE | 2019-04-23 06:47 | NUR ---
NURSE NOTES: Called Dr. Schofield and left message regarding patient's low blood pressure. Waiting for call back.
[2019-04-23 07:16] LABS: ANION GAP 9 mmol/L (5-15); BLOOD UREA NITROGEN 32 mg/dL (7-18); CALCIUM 8.6 MG/DL (8.5-10.1); CARBON DIOXIDE 22 MMOL/L (21-32); CHLORIDE 97 MMOL/L (98-107); CREATININE 1.4 MG/DL (0.55-1.30); POTASSIUM 4.3 MMOL/L (3.5-5.1); SODIUM 128 MMOL/L (136-145)
--- NOTE | 2019-04-23 07:18 | NUR ---
HAND-OFF: Report given to CHA Palomares.
--- NOTE | 2019-04-23 07:34 | NUR ---
NURSE NOTES: received report from CHA Hernandez. patient in bed. alert. oriented. verbally responsive. no pain at time. hypotensive this morning. /52. received order from Dr. kumar. give NS 500 bolus once. IV on LFA22g. RFA22g intact. skin intact. bed in the lowest position. call light within reach. will continuye
--- NOTE | 2019-04-23 07:38 | NUR ---
NURSE NOTES: cont. will continue to provide plan of care.
[2019-04-23] MEDS: Docusate 100mg cap ORAL SCH ×3 (08:36→17:28)
[2019-04-23] MEDS: FLUoxetine 10mg cap ORAL SCH (08:36)
[2019-04-23] MEDS: Sennosides 8.6mg tab ORAL SCH (08:36)
[2019-04-23] MEDS: Depakote ER 500mg tab ORAL SCH (08:36)
[2019-04-23] MEDS: Heparin 5000 units/ml inj SUBQ SCH (08:37)
[2019-04-23] MEDS: Lisinopril 10mg tab ORAL SCH (08:41)
--- NOTE | 2019-04-23 08:41 | NUR ---
NURSE NOTES: patient refused fleet enema. had a BM 04/22/19.
[2019-04-23] MEDS ORDERED: Fleet's Mineral Oil Enema RECTAL SCH (09:00)
--- NOTE | 2019-04-23 10:34 | Nephrology Progress Note ---
Assessment/Plan Problem List: (1) Hyponatremia Assessment: mixed picture (2) Diabetes mellitus (3) Psychosis (4) Anemia Assessment HypoNatremia. Etiology: Depletional / SIADH DM , OOC , elevated A1c Mild Anemia HypoAlbuminemia Plan on Synthroid UOs SOs TSH elevated Uric Acid Low 3% saline trial prn and Lasix, ordered yesterday- delayed due to lack of iv site - still running Urine spot Na high per orders Subjective ROS Limited/Unobtainable: No Constitutional: Reports: malaise Objective Objective Last 24 Hour Vital Signs Date Time Temp Pulse Resp B/P (MAP) Pulse Ox O2 Delivery O2 Flow Rate FiO2 04/23/19 08:00 97.9 65 18 136/78 (97) 100 04/23/19 06:02 88/47 (61) 04/23/19 05:55 88/44 (59) 04/23/19 04:00 97.4 61 18 87/46 (60) 98 04/23/19 00:00 97.9 82 20 99/56 (70) 96 04/22/19 21:00 Room Air 04/22/19 20:00 98.1 83 18 126/73 (90) 96 04/22/19 16:00 99.3 81 18 134/81 (98) 97 04/22/19 12:00 98.1 71 19 128/74 (92) 98 Intake and Output 04/22/19 04/23/19 18:59 06:59 Intake Total 400 ml 780 ml Balance 400 ml 780 ml Intake Oral 400 ml 300 ml IV Total 480 ml # Voids 4 2 # Bowel Movements 1 Laboratory Tests 04/23/19 05:25: Sodium Level 128L, Potassium Level 4.3, Chloride Level 97L, Carbon Dioxide Level 22, Anion Gap 9, Blood Urea Nitrogen 32H, Creatinine 1.4H, Estimat Glomerular Filtration Rate 38.0, Glucose Level 116H, Calcium Level 8.6 Height (Feet): 5 Height (Inches): 0.00 Weight (Pounds): 151 General Appearance: no apparent distress Cardiovascular: normal rate Respiratory/Chest: lungs clear Abdomen: soft Objective no change Alfonso Baez MD Apr 23, 2019 10:34
--- NOTE | 2019-04-23 15:50 | NUR ---
NURSE NOTES: spoke to MILTON Coronado. she confirmed with Dr. carmichael for discharge. cleared by Dr. olivares. order noted and carried out.
--- NOTE | 2019-04-23 15:54 | NUR ---
NURSE NOTES: given patient report to ghazala NICHOLSON. spoke to Patrizia/charge nurse.
--- NOTE | 2019-04-23 16:00 | NUR ---
NURSE NOTES: patient refused to sign on discharge paper at this time. checked and counted belongings with patients but patients said not comfortable to sign at this time. RN will try to get sign upon discharge.
--- NOTE | 2019-04-23 17:00 | NUR ---
NURSE NOTES: [facility] for transportation status. spoke to tammy. ambulance will be arrive around 1929.
--- NOTE | 2019-04-23 17:12 | NUR ---
DISCHARGE PLANNING DISCHARGE ORDER NOTED Patient has been accepted to; [facility] [address] [place] [id number] Bed: 21-A Skilled for Nurse to Nurse report [facility] ETA for transportation: 18:30
[2019-04-23] MEDS ORDERED: LORazepam Inj 2mg/ml 1ml IV SCH (18:05)
--- NOTE | 2019-04-23 19:21 | NUR ---
NURSE NOTES: patient in bed. alert. oriented x1-2, forgetful. verbally responsive. no pain at time. skin intact. bed in the lowest position. call light within reach. will continue to monitor. Awaiting ambulance to come to bring pt to [facility] for discharge/transport.
--- NOTE | 2019-04-23 19:29 | NUR ---
HAND-OFF: Report given to CHA Zhu.
--- NOTE | 2019-04-23 19:55 | NUR ---
discharge: NURSE NOTES: Pt escorted via [facility] to [facility] for discharge. Spoke with Radha and rectified medications as they were inaccurate. Pt in stable condition for transport. BP was elevated at 160/99 spoke with CN at [facility] and gave 254 mg hydralazine and BP went to 100/70. Pt escorted out.
--- NOTE | 2019-04-23 20:00 | NUR ---
HAND-OFF: Report given to [facility] ambulance co. pt in stable condition for transfer.
--- NOTE | 2019-04-23 23:35 | Internal Med Progress Note ---
Subjective Physician Name Nelson Schofield Attending Physician Nelson Schofield MD Allergies: Coded Allergies: No Known Allergies (Unverified , 04/15/19) Subjective Awake, alert, responsive, denies any chest pain, denies any shortness of breath , less dizziness sodium: 128 Objective Last Vital Signs Date Time Temp Pulse Resp B/P (MAP) Pulse Ox O2 Delivery O2 Flow Rate FiO2 04/23/19 20:10 158/113 04/23/19 16:00 98.5 80 18 95 04/23/19 09:00 Room Air Laboratory Tests Test 04/23/19 05:25 Sodium Level 128 MMOL/L (136-145) L Potassium Level 4.3 MMOL/L (3.5-5.1) Chloride Level 97 MMOL/L (98-107) L Carbon Dioxide Level 22 MMOL/L (21-32) Anion Gap 9 mmol/L (5-15) Blood Urea Nitrogen 32 mg/dL (7-18) H Creatinine 1.4 MG/DL (0.55-1.30) H Estimat Glomerular Filtration Rate 38.0 mL/min (>60) Glucose Level 116 MG/DL (74-106) H Calcium Level 8.6 MG/DL (8.5-10.1) Intake and Output 04/22/19 04/23/19 19:00 07:00 Intake Total 400 ml 780 ml Balance 400 ml 780 ml Intake Oral 400 ml 300 ml IV Total 480 ml # Voids 4 2 # Bowel Movements 1 Objective General: No acute distress, awake and alert HEENT: NCAT, sclera anicteric, PERRL, EOMI. Neck: Supple, no significant jugular venous distention, Lungs: Good inspiratory effort, no accessory muscle use, clear to auscultation bilaterally, no Wheeze or Rales. Heart: Regular rate and rhythm, normal S1/S2, no murmur. Abdomen: soft, nontender, nondistended. Normoactive bowel sounds, obesity. / Rectal: Refused and deferred. Extremities: No Cyanosis , clubbing or edema. Neuro: A&O x 3, Able to move all extremities Skin: warm, no rashes or lesions Psych: Normal mood and affect Assessment/Plan Assessment/Plan 1. Vertigo/Ataxia possibly due to the severe hyponatremia. 2. Dehydration. 3. 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 4. Hypertension. 5. Diabetes type 2. 6. GERD. 7. Depression. 8. History of right frontal craniotomy. PLAN: 1. In medical floor. 2. PT Mobility. 3. Monitor laboratory closely. 4. Follow up with the Nephrology consultation as well as Neurology if need to. 5. Code status Full Code. 6. DVT prophylaxis with heparin subcutaneous. 7. Discharge planning possible today Nelson Schofield MD Apr 23, 2019 23:35
--- NOTE | 2019-04-25 15:00 | Discharge Summary ---
Discharge Summary Discharge Summary _ DATE OF ADMISSION: 04/15/2019 DATE OF DISCHARGE: 04/23/2019 DISCHARGED BY: Dr. Nelson Schofield CONSULTANTS: Dr. Alfonso Silveira BRIEF HOSPITAL COURSE: Patient is a 64-year-old female with past medical history significant for diabetes type 2, hypertension, morbid obesity, history of craniotomy and depression, who presented to the hospital from boarding care after she was noted to have difficulty walking. She had several falls in the past. She has a balance problem. She denied any nausea or vomiting, denied any fever or chills. Denied any seizure activity. Denied any bowel or urinary incontinence. She has constipation. On evaluation at the ED, vital signs were stable blood work showed WBC of 8, hemoglobin of 13, hematocrit 39, platelet 166. Sodium 124, potassium 4.7, chloride 98, bicarb 25, BUN 19 and creatinine glucose was 124. Troponin 0 0.00. proBNP was 511. Urinalysis was grossly intact. Urine osmolality 321. She had a CT of the lumbar spine did did not show any acute injury, with minimal degenerative changes. Head CT was done and showed no acute intracranial bleed, mass-effect or edema. There was mild atrophy of the brain. 6 x 5 centimeters right frontal craniectomy. She was given IV hydration. She was admitted for evaluation dizziness and balance problems, possibly due to severe hyponatremia and dehydration. She was admitted to medical floor was given IV hydration. She was placed on heparin for prophylaxis and was given GI protectant. She was continued on Depakote and Prozac. She was given Seroquel 100 mg qhs. She was given lisinopril for blood pressure control. Financial Reserve Clerk ws consulted for electrolyte abnormalities. Anemia work-up was done. She was given trial of hypertonic solution. Urine spot sodium was 85. She was given IV Lasix. TSH was also elevated to 8.5. She was given 50 mcg Synthroid. Uric acid was low. Urine osm 321, serum osm 274. MRI of the brain did not show any evidence of acute intracranial hemorrhage, mass-effect or cortical edema. There was nonspecific periventricular and subcortical T2 signal hyperintensity without mass needed to chronic small vessel. Prior right frontal craniectomy. Chest x-ray did not show any acute disease. She had anemia. Anemia work-up showed serum iron level of 35. Ferritin 65. She was given a dose of IV Venofer. Hemoglobin A1c 6.7. She was placed on insulin sliding scale. She was given glipizide 10 mg twice daily AC. Patient was discharged on 11/18/2018, however was unable to go back to previous living. Case management and social media analyst were consulted. Insurance was notified. Evaluation showed patient ambulatory with decreased bilateral step length and narrow base of support with increased risk of fall. Patient was assessed would benefit from skilled inpatient PT intervention to address strength, balance, safety awareness and functional mobility. She was provided front wheeled walker for ambulation. She was eventually discharged to [facility]. 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 Hypertension Type 2 diabetes mellitus GERD Depression History of right frontal craniotomy Acute encephalopathy Generalized weakness Psychosis Iron deficiency anemia DISPOSITION: Patient was discharged to a SNF. DISCHARGE MEDICATIONS: Refer to Discharge Medication List. I have been assigned to complete a discharge summary on this account, I was not involved with the patient's management.--AHSAN Bethea Jacqueline Robles NP Apr 25, 2019 15:00
== END 2019-04-23 19:55 | DRG 426 ==
LOC: EMR 15:40 → OBSVTOIN 16:13 → 4E 16:13 → EDBEDREQ 16:44 → 4E 04-19 03:51
DX: E22.2 Syndrome of inappropriate secretion of antidiuretic hormone (principal); E88.09 Other disorders of plasma-protein metabolism, not elsewhere classified; G93.40 Encephalopathy, unspecified; E11.65 Type 2 diabetes mellitus with hyperglycemia; F29 Unspecified psychosis not due to a substance or known physiological condition; K21.9 Gastro-esophageal reflux disease without esophagitis; F32.9 Major depressive disorder, single episode, unspecified; E86.0 Dehydration; R27.0 Ataxia, unspecified; I10 Essential (primary) hypertension; R53.1 Weakness; D50.9 Iron deficiency anemia, unspecified; Z91.81 History of falling
CPT/HCPCS: 36415; 70450; 70551; 71045; 72131; 80048; 80053; 80164; 81003; 82550; 82553; 82607; 82728; 82746; 82962; 82977; 83036; 83540; 83550; 83735; 83880; 83930; 83935; 84100; 84300; 84443; 84484; 84550; 85025; 85610; 85730; 86140; 87081; 93005; 99285; J1815